=== PATIENT | female | born 1985 | race Caucasian/White ===

== ENCOUNTER → 2020-09-25 08:41 | Outpatient (BNVA) | payer MEDICAID, SELFPAY | PROVIDERS: PCP Pediatrics; Visit Provider Physician Assistant | DX: K58.9 Irritable bowel syndrome, unspecified (principal); F41.9 Anxiety disorder, unspecified | CPT/HCPCS: 99212 ==

== ENCOUNTER 2020-12-27 13:15 | Emergency (ER) | payer OTHER, MEDICAID, SELFPAY ==
[2020-12-27 13:22] VITALS: BP 140/60; BP 147/104; PULSE 100; PULSE 80; RESP 16; TEMP 36.9; O2SAT 100; O2SAT 98; BMI 22.4
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
[2020-12-27 14:06] LABS: MANUAL DIFF FLAG NO
[2020-12-27 14:08] LABS: Basophils Percent Auto 0.5 % (0-2); Eosinophils Absolute Auto 0.3 X10*3/uL (0.0-0.4); Eosinophils Percent Auto 4.1 % (0-4); Hematocrit 42.2 % (37-47); Hemoglobin 14.4 g/dl (12.0-16.0); Imm Gran Abs Auto 0.02 X10*3/uL (0.00-0.03); Imm Gran Pct Auto 0.3 % (0.0-0.4); Lymphocytes Absolute Auto 1.8 X10*3/uL (1.2-4.9); Lymphocytes Percent Auto 22.4 % (20-40); Mean Corpuscular HGB Conc 34.1 g/dl (31.0-35.0); Mean Corpuscular Hemoglobin 32.4 pg (27.0-33.0); Mean Platelet Volume 8.9 fL (9.4-12.3); Monocytes Absolute Auto 0.7 X10*3/uL (0.1-1.2); Neutrophils Percent Auto 63.7 % (45-73); Platelet Count 365 X10*3/uL (160-400); Red Blood Count 4.44 X10*6/uL (4.20-5.50); Red Cell Distribution Width 12.3 % (11.0-16.0); White Blood Count 7.9 X10*3/uL (4.8-10.8)
[2020-12-27 14:29] LABS: Ethanol 19 mg/dL
[2020-12-27 14:31] LABS: Alanine Aminotransferase 13 U/L (0-31); Albumin Level 4.2 g/dL (3.5-5.0); Alkaline Phosphatase 91 U/L (39-117); Anion Gap 14 (12-20); Aspartate Amino Transferase 19 U/L (5-31); Bilirubin Direct < 0.2 mg/dL (0.0-0.5); Bilirubin Total 0.2 mg/dL (0.0-1.0); Blood Urea Nitrogen 10 mg/dL (9-16); Calcium 9.2 mg/dL (8.4-10.2); Carbon Dioxide 23 mmol/L (22-29); Chloride 106 mmol/L (96-108); Creatinine Clr Calc Pharmacy 70.3; Estimated Glomerular Filt Rate > 60; Glucose Random 103 mg/dL (60-115); Potassium 3.8 mmol/L (3.3-5.1); Sodium 139 mmol/L (135-145); Total Protein 6.4 g/dL (6.5-8.0)
[2020-12-27 14:49] LABS: Glucose Urine UA NEG (NEG); Leukocyte Esterase Urine 1+ (NEG); Nitrite Urine NEG (NEG); Specific Gravity - Urine >= 1.030 (1.005-1.025); UACC Culture Trigger YES; Urine Blood NEG (NEG); Urine Ketones NEG (NEG); Urine Protein NEG (NEG-TRACE)
[2020-12-27 15:08] LABS: Appearance Urine CLOUDY; Color Urine YELLOW
[2020-12-27 15:09] LABS: Amphetamine Screen Urine Not Detected (Not Detect); Barbiturates, Urine Not Detected (Not Detect); Benzodiazepines Screen Urine Not Detected (Not Detect); Cannabinoid Screen Urine POSITIVE (Not Detect); Cocaine Screen Urine POSITIVE (Not Detect); Opiate Screen Urine Not Detected (Not Detect); Phencyclidine Screen Urine Not Detected (Not Detect); Squamous Epithelial Cell Urine 3+ /LPF; WBC Urine 0 /HPF (0-4)
[2020-12-27 15:10] LABS: Bacteria Urine 2+ /LPF; Mucus Urine 1+ /LPF
[2020-12-27 15:12] LABS: UPreg QC Valid YES; Urine Pregnancy NEGATIVE (NEGATIVE)
== END 2020-12-27 15:51 | disposition home or self-care (01) ==
PROVIDERS: Physician Assistant Medical; Emergency Provider Emergency Medicine; PCP Pediatrics
DX: Z04.1 Encounter for examination and observation following transport accident (principal); F19.10 Other psychoactive substance abuse, uncomplicated; R53.83 Other fatigue; F12.10 Cannabis abuse, uncomplicated
CPT/HCPCS: 36415; 80048; 80076; 80307; 81001; 81003; 81025; 82077; 85025; 87086; 99283; 99284

== ENCOUNTER 2021-10-15 11:26 | Outpatient (REF) | payer MEDICAID, SELFPAY ==
--- NOTE | ~2021-10-15 | XR_ITS ---
EXAMINATION: XR tibia fibula RT 2V, XR ankle RT 2V, XR knee RT 4V CLINICAL INFORMATION: Contusion. Fall 3 days ago. Pain in right ankle, knee, lower leg. COMPARISON: None. TECHNIQUE: AP, lateral, tunnel, and sunrise views of the right knee. AP and lateral views of the right tibia and fibula. AP, lateral, and oblique views of the right ankle. FINDINGS: There is a mildly displaced vertically oriented fracture through the lateral tibial plateau with approximately 2-3 mm offset. There is a moderate to large suprapatellar joint effusion. The medial tibial plateau is intact. The distal femur is intact. The fibula and mid to distal tibia are intact. No fracture or dislocation at the right ankle. Talar dome intact. No widening of the ankle mortise. XR/XR ankle RT 2V IMPRESSION: Mildly displaced vertically oriented fracture through the lateral tibial plateau with 2-3 mm offset at the articular surface. There is a moderate to large suprapatellar joint effusion. The distal femur, remainder of the tibia, and fibula are intact. No acute osseous abnormality of the right ankle. The findings and my recommendations not to bear weight and to be seen in the ER were discussed with the patient by telephone at 10/16/2021 4:48 PM. She understood and agreed with my plan.
--- NOTE | ~2021-10-15 | XR_ITS ---
EXAMINATION: XR tibia fibula RT 2V, XR ankle RT 2V, XR knee RT 4V CLINICAL INFORMATION: Contusion. Fall 3 days ago. Pain in right ankle, knee, lower leg. COMPARISON: None. TECHNIQUE: AP, lateral, tunnel, and sunrise views of the right knee. AP and lateral views of the right tibia and fibula. AP, lateral, and oblique views of the right ankle. FINDINGS: There is a mildly displaced vertically oriented fracture through the lateral tibial plateau with approximately 2-3 mm offset. There is a moderate to large suprapatellar joint effusion. The medial tibial plateau is intact. The distal femur is intact. The fibula and mid to distal tibia are intact. No fracture or dislocation at the right ankle. Talar dome intact. No widening of the ankle mortise. XR/XR knee RT 4V IMPRESSION: Mildly displaced vertically oriented fracture through the lateral tibial plateau with 2-3 mm offset at the articular surface. There is a moderate to large suprapatellar joint effusion. The distal femur, remainder of the tibia, and fibula are intact. No acute osseous abnormality of the right ankle. The findings and my recommendations not to bear weight and to be seen in the ER were discussed with the patient by telephone at 10/16/2021 4:48 PM. She understood and agreed with my plan.
--- NOTE | ~2021-10-15 | XR_ITS ---
EXAMINATION: XR tibia fibula RT 2V, XR ankle RT 2V, XR knee RT 4V CLINICAL INFORMATION: Contusion. Fall 3 days ago. Pain in right ankle, knee, lower leg. COMPARISON: None. TECHNIQUE: AP, lateral, tunnel, and sunrise views of the right knee. AP and lateral views of the right tibia and fibula. AP, lateral, and oblique views of the right ankle. FINDINGS: There is a mildly displaced vertically oriented fracture through the lateral tibial plateau with approximately 2-3 mm offset. There is a moderate to large suprapatellar joint effusion. The medial tibial plateau is intact. The distal femur is intact. The fibula and mid to distal tibia are intact. No fracture or dislocation at the right ankle. Talar dome intact. No widening of the ankle mortise. XR/XR tibia fibula RT 2V IMPRESSION: Mildly displaced vertically oriented fracture through the lateral tibial plateau with 2-3 mm offset at the articular surface. There is a moderate to large suprapatellar joint effusion. The distal femur, remainder of the tibia, and fibula are intact. No acute osseous abnormality of the right ankle. The findings and my recommendations not to bear weight and to be seen in the ER were discussed with the patient by telephone at 10/16/2021 4:48 PM. She understood and agreed with my plan.
== END 2021-10-15 11:27 | disposition home or self-care (01) ==
LOC: HO.XRAY 11:26
PROVIDERS: Absent Provider Pediatrics; PCP Pediatrics; Visit Provider General Practice
DX: S80.11XD Contusion of right lower leg, subsequent encounter (principal); S80.01XD Contusion of right knee, subsequent encounter
CPT/HCPCS: 73564; 73590; 73600

== ENCOUNTER 2021-10-16 17:35 | Emergency (ER) | payer MEDICAID, SELFPAY ==
--- NOTE | ~2021-10-16 | CT_ITS ---
EXAMINATION: CT KNEE WITHOUT CONTRAST, RIGHT CLINICAL INFORMATION: Tibial plateau fracture COMPARISON: Radiographs 10/15/21 TECHNIQUE: Multidetector CT. Examination of the right knee. Reformatting in the coronal and parasagittal planes. No contrast This CT examination was performed using dose optimization techniques as appropriate, variously including the following: *Automated exposure control *Adjustment of mA and/or kV according to patient size (this includes techniques or standardized protocols for targeted exams where dose is matched to indication/reason for exam; i.e. extremities or head) *Use of iterative reconstruction technique DLP: 207 mGy-cm FINDINGS: There is a comminuted lateral tibial plateau fracture. I estimate the depression to be approximately 2-3 mm. There is condensation with the impacted some chondral bone. The fracture extends to the region of the lateral tibial spine. There are vertical components with slight displacement of the cortex of the lateral metaphysis. The visualized fibula femur and patella appear intact. There is hemarthrosis. No gross disruption of the posterior cruciate. The upper two thirds of the anterior cruciate appear intact. The tibial insertion of the ACL is not optimally visualized. The extensor mechanism appears intact. Meniscal integrity is not able to be determined. CT/CT knee RT wo con IMPRESSION: Impacted mildly depressed comminuted intra-articular lateral tibial plateau fracture with hemarthrosis.
[2021-10-16 17:53] VITALS: BP 131/93; PULSE 81; RESP 16; TEMP 36.5; O2SAT 97; BMI 25.7
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
[2021-10-16] MEDS: oxyCODONE HCl Immed Release 5 MG TABLET PO (20:01)
[2021-10-16] MEDS: Ondansetron ODT 4 MG TAB.RAPDIS TRANSLINGU (20:02)
[2021-10-16] MEDS: Acetaminophen 325 MG TABLET 975 MG PO (20:02)
[2021-10-16 20:40] LABS: Amphetamine Screen Urine Not Detected (Not Detect); Barbiturates, Urine Not Detected (Not Detect); Benzodiazepines Screen Urine Not Detected (Not Detect); Cannabinoid Screen Urine POSITIVE (Not Detect); Cocaine Screen Urine POSITIVE (Not Detect); Fentanyl, urine Not Detected (Not Detect); Opiate Screen Urine Not Detected (Not Detect); Phencyclidine Screen Urine Not Detected (Not Detect)
== END 2021-10-16 20:28 | disposition home or self-care (01) ==
PROVIDERS: Physician Assistant; Emergency Provider Internal Medicine; PCP Pediatrics
DX: S82.141A Displaced bicondylar fracture of right tibia, initial encounter for closed fracture (principal); M25.061 Hemarthrosis, right knee; W01.0XXA Fall on same level from slipping, tripping and stumbling without subsequent striking against object, initial encounter; Y93.K1 Activity, walking an animal; Y92.410 Unspecified street and highway as the place of occurrence of the external cause; Y99.9 Unspecified external cause status
CPT/HCPCS: 73700; 80307; 99282; 99284

== ENCOUNTER → 2021-10-19 13:59 | Outpatient (BNVA) | payer MEDICAID, SELFPAY | PROVIDERS: PCP Pediatrics; Visit Provider Physician Assistant | DX: S82.141A Displaced bicondylar fracture of right tibia, initial encounter for closed fracture (principal) | CPT/HCPCS: 99202 ==

== ENCOUNTER → 2021-10-20 09:10 | Day surgery (SDC) | payer MEDICAID, SELFPAY ==
[2021-10-20 10:49] VITALS: BMI 24.8
[2021-10-20 11:18] LABS: UPreg QC Valid YES
[2021-10-20 11:19] LABS: Urine Pregnancy NEGATIVE (NEGATIVE)
[2021-10-20 11:28] LABS: COVID-19 Test Negative (Negative); IDNOW Serial# 16C4AD1C
[2021-10-20 11:31] LABS: Amphetamine Screen Urine Not Detected (Not Detect); Barbiturates, Urine Not Detected (Not Detect); Benzodiazepines Screen Urine Not Detected (Not Detect); Cannabinoid Screen Urine POSITIVE (Not Detect); Cocaine Screen Urine POSITIVE (Not Detect); Fentanyl, urine Not Detected (Not Detect); Opiate Screen Urine Not Detected (Not Detect); Phencyclidine Screen Urine Not Detected (Not Detect)
[2021-10-20 11:41] VITALS: BP 128/101; PULSE 77; RESP 18; TEMP 37.1; O2SAT 98
--- NOTE | 2021-10-20 14:15 | HO.ANESPROP2 ---
HPI - Anesthesia Eval Consult details Narrative: 36 F for ORIF of Tibial Fracture . The Urine Tox is positive for cocaine . The Patient admits of using cocaine up until late Tuesday/ Tuesday . The case was discussed with the surgeon . He will reschedule the patient for next week , given the non urgency of the procedure . PMFSH Active Problems Active Problems: All Active Problems (Updated 10/17/21 @ 00:03 by Tim Morales) Acid reflux (Acute) Anxiety (Acute) IBS (irritable bowel syndrome) (Acute) Past Medical History Medical History Acid reflux Anxiety IBS (irritable bowel syndrome) Family History Family History Father Colon cancer Liver cancer Surgical History Surgical History (Updated 10/19/21 @ 14:35 by MURIEL Comer) History of 2 sections History of carpal tunnel surgery Hx of cholecystectomy Social History Social History (Updated 10/19/21 @ 14:35 by MURIEL Comer) Household Members Other:: 2 kids Alcohol intake: current Patient Tobacco Use Status: Current everyday Tobacco user Tobacco use type: Cigarette Cigarette Packs Per Day: 3 Cigarettes Per Day: 60.0 Smoked in Last 30 Days: Yes Patient Given Instructions on How to Stop Smoking: Yes Date Education Initiated: 10/20/21 Second Hand Smoke Exposure: Yes Use of substances other than those prescribed or required for medical reasons: Yes Substance Use Type: Marijuana Are you DNR?: No Advance Directives: No Advance Directives Information Provided: Yes Current occupational status: unemployed 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 Meds Allergies Allergy/AdvReac Type Severity Reaction Status Date / Time No Known Allergies Allergy Verified 10/19/21 14:33 [No Known Allergies*] Home Medications Medication Instructions Recorded Confirmed Last Taken Type calcium carbonate 200 mg calcium 200 mg PO BID 09/25/20 09/25/20 Unknown History (500 mg) chewable tablet (Tums) sertraline 25 mg tablet (Zoloft) 25 mg PO DAILY 09/25/20 09/25/20 Unknown History trazodone 50 mg tablet 50 mg PO BEDTIME PRN 09/25/20 09/25/20 Unknown History Exam Exam Date and Time: October 20, 2021 1415 Height,Weight and Vital Signs: Height 4 ft 8 in Weight 50.349 kg Last Vital Signs Temp 98.7 F 10/20/21 11:41 Pulse 77 10/20/21 11:41 Resp 18 10/20/21 11:41 BP 128/101 H 10/20/21 11:41 Pulse Ox 98 10/20/21 11:41 Pertinent Lab Results Pertinent Lab Results: Laboratory Tests 10/20/21 10/20/21 10/20/21 10:35 10:35 10:44 Urine Test NEGATIVE Urine Opiates Screen Not Detected Urine Fentanyl Screen Not Detected Ur Barbiturates Screen Not Detected Ur Phencyclidine Scrn Not Detected Ur Amphetamines Screen Not Detected U Benzodiazepines Scrn Not Detected Urine Cocaine Screen POSITIVE H U Marijuana (THC) Screen POSITIVE H COVID-19 ([facility]EENA) Negative COVID-19 Clin Com See Note
--- NOTE | 2021-10-28 14:34 | MHC.SHP ---
Pre-Procedural Eval Section A Date of Service: 10/28/21 The patient is an INPATIENT: No Changes since office visit: Yes Patient answered all questions; No Cold of Flu in the past 2 weeks, No New Medical Problems and No Changes in Medication The History & Physical has been completed within 30 days and I have reviewed it.: Yes Section B Chief Complaint: fx tibia Allergies: Allergies Allergy/AdvReac Type Severity Reaction Status Date / Time No Known Allergies Allergy Verified 10/19/21 14:33 [No Known Allergies*] Plan I have reviewed the history and physical and performed a pertinent physical examination on my patient. No changes have occurred unless specified.
== END ==
PROVIDERS: Anesthesiology; Physician Assistant; PCP Pediatrics; Visit Provider Orthopaedic Surgery
DX: S82.121A Displaced fracture of lateral condyle of right tibia, initial encounter for closed fracture (principal); Z53.8 Procedure and treatment not carried out for other reasons; Z20.822 Contact with and (suspected) exposure to COVID-19; W01.0XXA Fall on same level from slipping, tripping and stumbling without subsequent striking against object, initial encounter; Y93.K1 Activity, walking an animal; Y92.9 Unspecified place or not applicable; Y99.8 Other external cause status
CPT/HCPCS: 80307; 81025; 87635; J0131; J0690

== ENCOUNTER 2021-10-28 17:28 | Inpatient (IN) | payer MEDICAID, SELFPAY ==
[2021-10-28] VITALS (12 sets, daily range): BP systolic 135–156; BP diastolic 79–99; PULSE 75–89; RESP 14–30; TEMP 36.4–37.3; O2SAT 96–100; BMI 25.1
--- NOTE | ~2021-10-28 | FL_ITS ---
EXAMINATION: XR FLUOROSCOPY WITH IMAGES CLINICAL INFORMATION: Right tibial plateau fracture COMPARISON: CT knee from 10/16/2021 TECHNIQUE: Fluoroscopy performed by Dr. Esquivel. Fluoroscopy time: 0.6 minutes DAP: 0.0524 [id number] Images: 6 images are saved in the electronic picture archive FL/FL guidance in OR FINDINGS AND IMPRESSION: Please refer to the operative report. There has been open reduction and internal fixation of the lateral tibial plateau fracture with injection of bone graft and application of a lateral plate and fixation screws. No significant incongruity at the fractured lateral plateau surface. Alignment is normal at the knee.
[2021-10-28 12:13] LABS: UPreg QC Valid YES; Urine Pregnancy NEGATIVE (NEGATIVE)
[2021-10-28 12:31] LABS: Amphetamine Screen Urine Not Detected (Not Detect); Barbiturates, Urine Not Detected (Not Detect); Benzodiazepines Screen Urine Not Detected (Not Detect); Cannabinoid Screen Urine POSITIVE (Not Detect); Cocaine Screen Urine Not Detected (Not Detect); Fentanyl, urine Not Detected (Not Detect); Opiate Screen Urine Not Detected (Not Detect); Phencyclidine Screen Urine Not Detected (Not Detect)
[2021-10-28 13:24] LABS: COVID-19 Test Negative (Negative); IDNOW Serial# 16C4AD1C
[2021-10-28] MEDS: Lactated Ringers 1,000 ML 100 ML IVCONT ×3 (13:28→21:06)
--- NOTE | 2021-10-28 15:19 | HO.ANESPROP2 ---
HPI - Anesthesia Eval Consult details Narrative: 36 F for Tibia ORIF , right smoker , Poly substance substance abuse , GERD PMFSH Active Problems Active Problems: All Active Problems (Updated 10/17/21 @ 00:03 by Tim Morales) Acid reflux (Acute) Anxiety (Acute) IBS (irritable bowel syndrome) (Acute) Past Medical History Medical History Acid reflux Anxiety IBS (irritable bowel syndrome) Family History Family History Father Colon cancer Liver cancer Family history of problems with anesthesia: No Surgical History Surgical History (Updated 10/19/21 @ 14:35 by MURIEL Comer) History of 2 sections History of carpal tunnel surgery Hx of cholecystectomy History of Problems with Anesthesia: No Social History Social History (Updated 10/19/21 @ 14:35 by MURIEL Comer) Household Members Other:: 2 kids Alcohol intake: current Patient Tobacco Use Status: Current everyday Tobacco user Tobacco use type: Cigarette Cigarette Packs Per Day: 3 Cigarettes Per Day: 2 Second Hand Smoke Exposure: Yes Use of substances other than those prescribed or required for medical reasons: Yes Substance Use Type: Marijuana Substance Use Frequency: Daily Are you DNR?: No Advance Directives: No Advance Directives Information Provided: Yes Current occupational status: unemployed 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 Meds Allergies Allergy/AdvReac Type Severity Reaction Status Date / Time No Known Allergies Allergy Verified 10/19/21 14:33 [No Known Allergies*] Active Medications: Current Medications Lactated Ringer's (Lr) 1,000 mls @ 100 mls/hr IVCONT .Q10H GEOVANNI Last Admin: 10/28/21 13:28 Dose: 100 mls/hr Documented by: Home Medications Medication Instructions Recorded Confirmed Last Taken Type calcium carbonate 200 mg calcium 200 mg PO BID 09/25/20 09/25/20 Unknown History (500 mg) chewable tablet (Tums) sertraline 25 mg tablet (Zoloft) 25 mg PO DAILY 09/25/20 09/25/20 Unknown History trazodone 50 mg tablet 50 mg PO BEDTIME PRN 09/25/20 09/25/20 Unknown History Exam Exam Date and Time: October 28, 2021 1519 Height,Weight and Vital Signs: Height 4 ft 8 in Weight 50.802 kg Last Vital Signs Temp 97.5 F 10/28/21 13:16 Pulse 85 10/28/21 13:16 Resp 16 10/28/21 13:16 BP 150/99 H 10/28/21 13:16 Pulse Ox 97 10/28/21 13:16 Pertinent Lab Results Pertinent Lab Results: Laboratory Tests 10/28/21 10/28/21 10/28/21 12:03 12:03 13:00 Urine Test NEGATIVE Urine Opiates Screen Not Detected Urine Fentanyl Screen Not Detected Ur Barbiturates Screen Not Detected Ur Phencyclidine Scrn Not Detected Ur Amphetamines Screen Not Detected U Benzodiazepines Scrn Not Detected Urine Cocaine Screen Not Detected U Marijuana (THC) Screen POSITIVE H COVID-19 ([facility]EENA) Negative COVID-19 Clin Com See Note Airway Mallampati Class: III TM Dist: >3cm Neck ROM: Full Loose/Missing/Broken Teeth: Yes (Chipped , poor dention ) Heart: S1,S2 Lungs: b/l breath sounds Assessment and Plan Assessment Anesthesia Assessment: Anesthesia Plan Discussed Final Anesthetic Review Family History of Problems with Anesthesia: No History of Problems with Anesthesia: No NPO: Yes ASA Class: III Final Preanesthetic Review: No Changes in Pt Med Stat, Meds/Allgs Chart Reviewed, Consent Obtained/Reviewed and Anes Risks/Benef Reviewed Patient Risk: High Procedure Risk: Intermediate Anesthetic Plan Anesthetic Plan: GA Disposition: Standard PACU
--- NOTE | 2021-10-28 17:38 | P.BOP_ITS ---
Brief Operative Note Date of Service: 10/28/21 Pre-op diagnosis: Right tibial plateau fracture Post-op diagnosis: same Procedure: ORIF right tibial plateau Implants: [place] 2 hikle lateral locking plate Surgeon: Daniel Esquivel MD Anesthesia: local Was an Global Expansion Sales Director used for this Procedure?: Yes Global Expansion Sales Director: Thuy Echeverria Estimated blood loss (mL): 100 Tourniquet time (min): 80 IV fluids (mL): 1,200 Pathology: none sent Condition: stable Disposition: PACU
[2021-10-28] MEDS: HYDROmorphone HCl 0.5 MG/0.5 ML SYRINGE IVPUSH ×3 (17:53→18:17)
--- NOTE | 2021-10-28 19:53 | PHA.MEDREC ---
Pharmacy Consult ? Medication Reconciliation Pharmacy has completed the medication reconciliation.
[2021-10-28] MEDS: 0.9 % Sodium Chloride Flush 3 ML SYRINGE IVFLUSH ×2 (20:56→23:57)
[2021-10-28] MEDS: oxyCODONE HCl ER 10 MG TAB.ER.12H PO (20:59)
[2021-10-28] MEDS: Celecoxib 200 MG CAPSULE PO (20:59)
[2021-10-28] MEDS: Docusate Sodium 100 MG CAPSULE PO (21:00)
[2021-10-28] MEDS: ceFAZolin Sodium/Dextrose,Iso 2 GM/50 ML PIGGYBACK IV (22:41)
[2021-10-28] MEDS: oxyCODONE HCl Immed Release 5 MG TABLET 10 MG PO (22:48)
[2021-10-29] VITALS (8 sets, daily range): BP systolic 119–183; BP diastolic 76–100; PULSE 70–87; RESP 16–18; TEMP 36.6–37.6; O2SAT 96–98
[2021-10-29] MEDS: HYDROmorphone HCl 1 MG/ML SYRINGE 0.25 MG IVPUSH ×4 (01:33→19:14)
[2021-10-29] MEDS: oxyCODONE HCl Immed Release 5 MG TABLET 10 MG PO ×3 (05:17→18:18)
[2021-10-29] MEDS: Lactated Ringers 1,000 ML 100 ML IVCONT (06:22)
[2021-10-29 06:26] LABS: MANUAL DIFF FLAG NO
[2021-10-29 06:28] LABS: Basophils Percent Auto 0.2 % (0-2); Hematocrit 38.4 % (37.0-47.0); Hemoglobin 12.8 g/dl (12.0-16.0); Imm Gran Abs Auto 0.17 X10*3/uL (0.00-0.03); Imm Gran Pct Auto 0.9 % (0.0-0.4); Lymphocytes Absolute Auto 1.2 X10*3/uL (1.2-4.9); Lymphocytes Percent Auto 6.2 % (20-40); Mean Corpuscular HGB Conc 33.3 g/dl (31.0-35.0); Mean Corpuscular Hemoglobin 33.2 pg (27.0-33.0); Mean Corpuscular Volume 99.5 fL (80.0-98.0); Mean Platelet Volume 9.6 fL (9.4-12.3); Monocytes Absolute Auto 1.1 X10*3/uL (0.1-1.2); Monocytes Percent Auto 6.1 % (2-11); Neutrophils Absolute Auto 16.1 x10*3/uL (2.0-8.3); Neutrophils Percent Auto 86.6 % (45-73); Platelet Count 463 X10*3/uL (160-400); Red Blood Count 3.86 X10*6/uL (4.20-5.50); Red Cell Distribution Width 12.9 % (11.0-16.0); White Blood Count 18.6 X10*3/uL (4.8-10.8)
[2021-10-29 06:54] LABS: Anion Gap 13 (12-20); Blood Urea Nitrogen 12 mg/dL (9-16); Carbon Dioxide 20 mmol/L (22-29); Chloride 106 mmol/L (96-108); Creatinine Clr Calc Pharmacy 80.2; Estimated Glomerular Filt Rate > 60; Glucose Fasting 134 mg/dL (60-99); Potassium 4.5 mmol/L (3.3-5.1); Sodium 134 mmol/L (135-145)
--- NOTE | 2021-10-29 07:04 | HO.POSTANES ---
Post Anesthesia Evaluation Post Anesthesia Evaluation Vital Signs: Vital Signs Temp Pulse Resp BP Pulse Ox 10/29/21 03:48 98 F 87 18 120/80 96 10/28/21 23:23 99.1 F 75 18 156/80 H 96 10/28/21 19:42 98.0 F 78 18 156/90 H 100 10/28/21 19:16 98.4 F 75 14 135/79 98 Anesthesia: Nerve Block and General Mental Status: Awake Pain Control: Satisfactory Nausea/Vomiting: None Hydration: Adequate Anesthesia-Related Issues: No Anes. Related Issues
[2021-10-29] MEDS: 0.9 % Sodium Chloride Flush 3 ML SYRINGE IVFLUSH ×2 (07:47→15:52)
[2021-10-29] MEDS: Docusate Sodium 100 MG CAPSULE PO ×2 (08:52→20:06)
[2021-10-29] MEDS: oxyCODONE HCl ER 10 MG TAB.ER.12H PO ×2 (08:52→20:06)
[2021-10-29] MEDS: Celecoxib 200 MG CAPSULE PO ×2 (08:52→20:06)
--- NOTE | 2021-10-29 08:57 | PM.PNORT ---
Subjective Subjective Date of Service: 10/29/21 Interval history: POD1 s/p right tibial plateau ORIF. Patient is resting in bed comfortably. Received a nerve block after surgery which greatly helped with pain. Pain is well managed currently. No overnight events. No additional complaints. Physical Exam Vital Signs: Vital Signs: Last Vital Signs Temp 98.4 F 10/29/21 07:25 Pulse 72 10/29/21 07:25 Resp 16 10/29/21 07:25 BP 119/76 10/29/21 07:25 Pulse Ox 98 10/29/21 07:25 BMI result Body Mass Index 25.1 Const: General: cooperative, healthy appearing and no acute distress Resp: Effort & Inspection: normal respiratory effort and able to speak in complete sentences Cardio: Rate: regular rate Peripheral pulses: Peripheral pulses 2+ throughout GI: Palpation (GI): Soft to palpation Skin: Lesions: no lesions Rashes: no rashes Extrem: Other: Right knee dressing clean, dry, and intact. NVI. Procedures Date of Service Date of Service: 10/29/21 Progress Note: A&P Assessment and plan (1) Closed fracture of tibial plateau: Status: Inactive Assessment and Plan: Continue pain mgmnt Begin Lovenox for dvt ppx begin PT for right tibial plateau ORIF Dispo planning-Pending PT eval, pain mgmnt Time Spent With Patient Time: Total time spent is greater than 50% in coordination of care (as documented) at patient's floor/unit and/or counseling patient: Quality Stroke Does the patient have a stroke diagnosis?: No VTE Prior VTE?: No VTE Risk Level:: Surgical - very high VTE Device Contraindication: N/A - Device Ordered VTE Drug Contraindication: N/A - Med Ordered
--- NOTE | 2021-10-29 10:26 | P.CONHOSP_ITS ---
History of Present Illness Data of Consult Service Date: 10/29/21 Requesting physician: Daniel Esquivel Primary Care Provider: Renetta Carr MD HPI Reason for consult: Leukocytosis/substance abuse 36-year-old female patient with past medical history significant for anxiety, acid reflux, and irritable bowel syndrome, admitted to Orthopedic Service for right tibial plateau fracture status post ORIF right tibial plateau on 10/28/21 By orthopedic surgeon, medical service was consulted for leukocytosis as well as concern for polysubstance abuse, at present time patient is complaining of right knee pain, she denies fever chills, she denies nausea vomiting abdominal pain or diarrhea she denies use of intravenous drugs, she snorts cocaine, last use was 2 weeks ago, she daily smokes marijuana, also smokes few cigarettes a day, and drinking alcohol occasionally few times a month, she denies any alcohol related issues with no prior history of withdrawal, no delirium tremens, or seizures, she denies back pain, has no withdrawal symptoms. Review of Systems Review of Systems: General no headache, no dizziness, no fever chills. CVS no chest pain, no palpitation. Respiratory no cough, no sob. Gastrointestinal no nausea, no vomiting, no abdominal pain no urinary frequency, no dysuria Skin denies rash Yes all other systems are reviewed and are negative PMFSH Medical History Acid reflux Anxiety IBS (irritable bowel syndrome) Family History Father Colon cancer Liver cancer Pertinent family history: No family history of diabetes or coronary artery disease Surgical History History of 2 sections History of carpal tunnel surgery Hx of cholecystectomy Social History Household Members: None Household Members Other:: 2 kids Housing: Apartment Do you presently have visiting nurse or other home services: No Alcohol intake: current Patient Tobacco Use Status: Current everyday Tobacco user Tobacco use type: Cigarette Cigarette Packs Per Day: 3 Cigarettes Per Day: 2 Smoked in Last 30 Days: Yes Patient Interested in Nicotine Replacement: No Patient Given Instructions on How to Stop Smoking: Yes Date Education Initiated: 10/28/21 Second Hand Smoke Exposure: No Use of substances other than those prescribed or required for medical reasons: No Substance Use Type: Marijuana Substance Use Frequency: Daily Last Used Substance: Hours (ago) Currently Displaying Signs/Symptoms of Drug Intoxication Withdrawal: No Any prior treatment program specific to substance use: No Have you been hit, kicked, punched, or otherwise hurt by someone within the past year? 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 Meds Allergies Allergy/AdvReac Type Severity Reaction Status Date / Time No Known Allergies Allergy Verified 10/19/21 14:33 [No Known Allergies*] Active Medications: Current Medications Acetaminophen (Acetaminophen 325 Mg Tablet) 650 mg PO Q6H PRN PRN Reason: Pain, Mild (Pain Scale 1-3) Celecoxib (Celecoxib 200 Mg Capsule) 200 mg PO BID [facility] Last Admin: 10/29/21 08:52 Dose: 200 mg Documented by: Docusate Sodium (Docusate Sodium 100 Mg Capsule) 100 mg PO BID [facility] Last Admin: 10/29/21 08:52 Dose: 100 mg Documented by: Enoxaparin Sodium (Enoxaparin Sodium 40 Mg/0.4 Ml Syringe) 40 mg SUBCUT Q24H [facility] Fentanyl (Fentanyl Citrate/Pf 100 Mcg/2 Ml Vial) 50 mcg IVPUSH Q5M PRN; Protocol PRN Reason: Pain, Severe (Pain Scale 7-10) Hydromorphone HCl (Hydromorphone Hcl 0.5 Mg/0.5 Ml Syringe) 0.5 mg IVPUSH Q5M PRN; Protocol PRN Reason: Pain, Severe (Pain Scale 7-10) Last Admin: 10/28/21 18:17 Dose: 0.5 mg Documented by: Hydromorphone HCl (Hydromorphone Hcl 1 Mg/Ml Syringe) 0.25 mg IVPUSH Q4H PRN; Protocol PRN Reason: Pain, Severe (Pain Scale 7-10) Last Admin: 10/29/21 07:46 Dose: 0.25 mg Documented by: Lactated Ringer's (Lr) 1,000 mls @ 100 mls/hr IVCONT .Q10H [facility] Last Admin: 10/29/21 06:22 Dose: 100 mls/hr Documented by: Ondansetron HCl (Ondansetron Hcl 4 Mg/2 Ml Vial) 4 mg IVPUSH Q8H PRN PRN Reason: Nausea and Vomiting Oxycodone HCl (Oxycodone Hcl Immed Release 5 Mg Tablet) 10 mg PO Q4H PRN PRN Reason: Pain, Moderate (Pain Scale 4-6 Last Admin: 10/29/21 05:17 Dose: 10 mg Documented by: Oxycodone HCl (Oxycodone Hcl Er 10 Mg Tab.Er.12h) 10 mg PO BID [facility] Last Admin: 10/29/21 08:52 Dose: 10 mg Documented by: Sodium Chloride (0.9 % Sodium Chloride Flush 3 Ml Syringe) 3 ml IVFLUSH QSHIFT [facility] Last Admin: 10/29/21 07:47 Dose: 3 ml Documented by: Home Medications Medication Instructions Recorded Confirmed Last Taken Type ibuprofen 200 mg tablet 200 mg PO Q6H PRN 10/28/21 10/28/21 10/28/21 History Physical Exam Vital Signs and Narrative: Vital Signs: Last Vital Signs Temp 98.4 F 10/29/21 07:25 Pulse 72 10/29/21 07:25 Resp 16 10/29/21 07:25 BP 119/76 10/29/21 07:25 Pulse Ox 98 10/29/21 07:25 BMI result Body Mass Index 25.1 Const: Other: General awake alert,in no acute distress. HEENT pupils equal round reactive to light and accommodation Neck no JVD. CVS regular rate rhythm, Respiratory lungs clear to auscultation, no respiratory distress, no wheeze, no rhonchi. Gastrointestinal abdomen soft, nontender, bowel sounds audible Extremities right extremity in brace, left extremity no edema. Neuro nonfocal ,speech clear. Skin no rash Psych appropriate affect Results Labs CBC and Chem 7: 10/29/21 05:46 10/29/21 05:46 Labs: Laboratory Results - last 24 hr 10/28/21 10/28/21 10/28/21 12:03 12:03 13:00 MCV MCH MCHC RDW Plt Count MPV Immature Gran % (Auto) Neut % (Auto) Lymph % (Auto) [place] % (Auto) Eos % (Auto) Baso % (Auto) Lymph # (Auto) [place] # (Auto) Eos # (Auto) Baso # (Auto) Abs Immat Gran (auto) Absolute Neuts (auto) Absolute Nucleated RBC Nucleated RBC % (auto) Anion Gap Estim Creat Clear Calc Estimated GFR Fasting Glucose Calcium Urine Test NEGATIVE Urine Opiates Screen Not Detected Urine Fentanyl Screen Not Detected Ur Barbiturates Screen Not Detected Ur Phencyclidine Scrn Not Detected Ur Amphetamines Screen Not Detected U Benzodiazepines Scrn Not Detected Urine Cocaine Screen Not Detected U Marijuana (THC) Screen POSITIVE H COVID-19 ([facility]EE[facility]) Negative COVID-19 Clin Com See Note 10/29/21 10/29/21 05:46 05:46 MCV 99.5 H MCH 33.2 H MCHC 33.3 RDW 12.9 Plt Count 463 H MPV 9.6 Immature Gran % (Auto) 0.9 H Neut % (Auto) 86.6 H Lymph % (Auto) 6.2 L [place] % (Auto) 6.1 Eos % (Auto) 0.0 Baso % (Auto) 0.2 Lymph # (Auto) 1.2 [place] # (Auto) 1.1 Eos # (Auto) 0.0 Baso # (Auto) 0.0 Abs Immat Gran (auto) 0.17 H Absolute Neuts (auto) 16.1 H Absolute Nucleated RBC 0.000 Nucleated RBC % (auto) 0.0 Anion Gap 13 Estim Creat Clear Calc 80.2 Estimated GFR > 60 Fasting Glucose 134 H Calcium 9.0 Urine Test Urine Opiates Screen Urine Fentanyl Screen Ur Barbiturates Screen Ur Phencyclidine Scrn Ur Amphetamines Screen U Benzodiazepines Scrn Urine Cocaine Screen U Marijuana (THC) Screen COVID-19 ([facility]EENA) COVID-19 Clin Com Assessment and Plan (1) Acid reflux: Status: Acute (2) Anxiety: Status: Acute (3) IBS (irritable bowel syndrome): Status: Acute (4) Polysubstance abuse: Status: Acute Plan 36 yr old female admitted to Orthopedic surgery for rt tibial plateau fx, DOI 10/12/21, Patient reports while walking her dog she had fall by tripping on the curb with rt leg putting all her weight on her left leg patient developed immediate pain and swelling and was unable to put pressure on left, patient admitted for elective right knee ORIF. Closed fracture of tibial plateau Status post ORIF pod #1 Good pain control continue Celebrex, oxycodone and OxyContin Will DC IV fluid/cont.bowel regimen/PT as tolerated Leukocytosis likely reactive, patient asymptomatic no URI symptoms no nausea,no vomiting, no abdominal pain, no diarrhea, no urinary symptoms will repeat CBC hold further workup for now. Irritable bowel disease stable Acid reflux no acute symptoms of heartburn or acidity not on PPI at home, follow clinical course. Poly substance abuse patient denies IV drug use smokes marijuana daily and snorts cocaine last use 2 weeks ago, and is motivated not to use cocaine again, declined Addiction Team consult DVT prophylaxis with Lovenox Will need continued inpatient hospitalization as per Orthopedic surgery
[2021-10-29] MEDS: Enoxaparin Sodium 40 MG/0.4 ML SYRINGE SUBCUT (15:52)
--- NOTE | 2021-10-29 16:38 | MHC.CM.PN ---
Addendum entered by Matilde Moreno 10/30/21 08:26: PT REPORTS BEING FULLY INDEPENDENT AT BASELINE, HAVING NO SERVICES AND USING NO DME PT DOES NOT HAVE A HCP BUT IS INTERESTED IN COMPLETING ONE TODAY PCP: ERIKA CAICEDO PT REPORTS SHE IS VACCINATED AGAINST COVID-19 CURRENT DC PLAN IS TO SISTERS HOME PER HER PREFERENCE SISTER TO TRANSPORT Original Note: CM MET WITH PT AND SISTER PT LIVES WITH HER CHILDREN () HOWEVER AT DC, SHE WILL BE GOING TO HER SISTERS HOME PT ALSO WOULD LIKE TO COMPLETE A HCP NAMING HER SISTER, STEFANO, HER AGENT CM WILL RETURN TUESDAY TO COMPLETE
[2021-10-29] MEDS: Morphine Sulfate 4 MG/ML CARTRIDGE IVPUSH (22:33)
[2021-10-29] MEDS: Zolpidem Tartrate 5 MG TABLET PO (22:33)
[2021-10-30] MEDS: 0.9 % Sodium Chloride Flush 3 ML SYRINGE IVFLUSH ×2 (00:40→08:27)
[2021-10-30] MEDS: HYDROmorphone HCl 1 MG/ML SYRINGE 0.25 MG IVPUSH (03:27)
[2021-10-30 03:30] VITALS: BP 162/89; PULSE 77; RESP 18; TEMP 36.3; O2SAT 96
[2021-10-30] MEDS: oxyCODONE HCl Immed Release 5 MG TABLET 10 MG PO ×2 (05:53→11:19)
[2021-10-30 06:24] LABS: Basophils Absolute Auto 0.1 X10*3/uL (0.0-0.2); Basophils Percent Auto 0.6 % (0-2); Eosinophils Absolute Auto 0.2 X10*3/uL (0.0-0.4); Eosinophils Percent Auto 1.2 % (0-4); Hematocrit 37.2 % (37.0-47.0); Hemoglobin 12.4 g/dl (12.0-16.0); Imm Gran Abs Auto 0.07 X10*3/uL (0.00-0.03); Imm Gran Pct Auto 0.5 % (0.0-0.4); Lymphocytes Absolute Auto 2.3 X10*3/uL (1.2-4.9); Lymphocytes Percent Auto 16.7 % (20-40); MANUAL DIFF FLAG SCAN; Mean Corpuscular HGB Conc 33.3 g/dl (31.0-35.0); Mean Corpuscular Hemoglobin 32.3 pg (27.0-33.0); Mean Corpuscular Volume 96.9 fL (80.0-98.0); Mean Platelet Volume 9.2 fL (9.4-12.3); Monocytes Absolute Auto 1.6 X10*3/uL (0.1-1.2); Monocytes Percent Auto 11.8 % (2-11); Neutrophils Absolute Auto 9.4 x10*3/uL (2.0-8.3); Neutrophils Percent Auto 69.2 % (45-73); Platelet Count 499 X10*3/uL (160-400); Red Blood Count 3.84 X10*6/uL (4.20-5.50); Red Cell Distribution Width 13.1 % (11.0-16.0); SCAN SMEAR FLAG 1; White Blood Count 13.5 X10*3/uL (4.8-10.8)
[2021-10-30 06:49] LABS: SLIDE REVIEW VERIFIED
[2021-10-30 06:50] LABS: Anion Gap 14 (12-20); Blood Urea Nitrogen 12 mg/dL (9-16); Calcium 9.3 mg/dL (8.4-10.2); Carbon Dioxide 22 mmol/L (22-29); Chloride 104 mmol/L (96-108); Creatinine Clr Calc Pharmacy 85.5; Estimated Glomerular Filt Rate > 60; Glucose Fasting 102 mg/dL (60-99); Potassium 4.5 mmol/L (3.3-5.1); Sodium 135 mmol/L (135-145)
[2021-10-30 07:37] VITALS: BP 173/107; PULSE 88; RESP 18; TEMP 36.9; O2SAT 99
--- NOTE | 2021-10-30 07:58 | PM.PNORT ---
Subjective Subjective Date of Service: 10/30/21 Interval history: POD2 s/p right tibial plateau ORIF. Patient is resting in bed comfortably. Received a nerve block after surgery which greatly helped with pain initially. She reports that last night she had a great deal of pain that was not well managed. Pain is well managed currently. No overnight events. No additional complaints. Physical Exam Vital Signs: Vital Signs: Last Vital Signs Temp 98.4 F 10/30/21 07:37 Pulse 88 10/30/21 07:37 Resp 18 10/30/21 07:37 BP 173/107 H 10/30/21 07:37 Pulse Ox 99 10/30/21 07:37 BMI result Body Mass Index 25.1 Const: General: cooperative, healthy appearing and no acute distress Resp: Effort & Inspection: normal respiratory effort and able to speak in complete sentences Cardio: Rate: regular rate Peripheral pulses: Peripheral pulses 2+ throughout GI: Palpation (GI): Soft to palpation Skin: Lesions: no lesions Rashes: no rashes Extrem: Other: Right knee dressing clean, dry, and intact. NVI. Procedures Date of Service Date of Service: 10/30/21 Progress Note: A&P Assessment and plan (1) Closed fracture of tibial plateau: Status: Inactive Assessment and Plan: Continue pain mgmnt Continue Lovenox for dvt ppx Continue PT for right tibial plateau ORIF Dispo planning-PT, pain mgmnt Time Spent With Patient Time: Total time spent is greater than 50% in coordination of care (as documented) at patient's floor/unit and/or counseling patient: Quality Stroke Does the patient have a stroke diagnosis?: No VTE Prior VTE?: No VTE Risk Level:: Surgical - very high VTE Device Contraindication: N/A - Device Ordered VTE Drug Contraindication: N/A - Med Ordered
[2021-10-30] MEDS: Docusate Sodium 100 MG CAPSULE PO (08:26)
[2021-10-30] MEDS: Acetaminophen 325 MG TABLET 650 MG PO ×2 (08:26→13:44)
[2021-10-30] MEDS: Celecoxib 200 MG CAPSULE PO (08:26)
[2021-10-30] MEDS: oxyCODONE HCl ER 10 MG TAB.ER.12H PO (08:27)
[2021-10-30 11:23] VITALS: BP 173/107; PULSE 88; O2SAT 99
--- NOTE | 2021-10-30 11:54 | P.PNIM_ITS ---
Subjective Subjective Date of Service: 10/30/21 Interval History: Complaining of poor sleep last night due to significant right knee pain, currently pain is better after use of IV pain medications, wants to rest refusing breakfast noted to have significantly elevated blood pressures overn ight BP remains elevated patient admits to having high blood pressures in the past, not on home medication, denies headache lightheadedness dizziness, no chest pain, no palpitation, , no fevers, no chills fairly Review of Systems Review of Systems: Yes all other systems are reviewed and are negative Physical Exam Vital Signs: Vital Signs: Last Vital Signs Temp 98.4 F 10/30/21 07:37 Pulse 88 10/30/21 11:23 Resp 18 10/30/21 07:37 BP 173/107 H 10/30/21 11:23 Pulse Ox 99 10/30/21 11:23 BMI result Body Mass Index 25.1 Const: Other: General awake aler t,in no acute dist ress. HEENT pupils equal round react tavon to light and a ccommodation? Neck ? no JVD. CVS? reg ular rate rhythm, Respiratory lungs clear to auscultat ion, no respirator y distress, no whe maggy, no rhonchi. G astrointestinal ab domen soft, nonten emerald, bowel sounds audible Extremitie s right extremity in brace, left ext remity no edema. N euro nonfocal ,spe ech clear. Skin no rash Psych approp riate affect Objective Data Active Medications Acetaminophen (Acetaminophen 325 Mg Tablet) 650 mg PO Q6H PRN PRN Reason: Pain, Mild (Pain Scale 1-3) Last Admin: 10/30/21 08:26 Dose: 650 mg Documented by: SARITHA Amlodipine Besylate (Amlodipine Besylate 5 Mg Tablet) 5 mg PO DAILY [facility]; Protocol Celecoxib (Celecoxib 200 Mg Capsule) 200 mg PO BID [facility] Last Admin: 10/30/21 08:26 Dose: 200 mg Documented by: SARITHA Docusate Sodium (Docusate Sodium 100 Mg Capsule) 100 mg PO BID [facility] Last Admin: 10/30/21 08:26 Dose: 100 mg Documented by: SARITHA Enoxaparin Sodium (Enoxaparin Sodium 40 Mg/0.4 Ml Syringe) 40 mg SUBCUT Q24H [facility] Last Admin: 10/29/21 15:52 Dose: 40 mg Documented by: DOLLY Fentanyl (Fentanyl Citrate/Pf 100 Mcg/2 Ml Vial) 50 mcg IVPUSH Q5M PRN; Prot ocol PRN Reason: Pain, Severe (Pain Scale 7-10) Ondansetron HCl (Ondansetron Hcl 4 Mg/2 Ml Vial) 4 mg IVPUSH Q8H PRN PRN Reason: Nausea and Vomiting Oxycodone HCl (Oxycodone Hcl Immed Release 5 Mg Tablet) 10 mg PO Q4H PRN PRN Reason: Pain, Moderate (Pain Scale 4-6 Last Admin: 10/30/21 11:19 Dose: 10 mg Documented by: SARITHA Oxycodone HCl (Oxycodone Hcl Er 10 Mg Tab.Er.12h) 10 mg PO BID [facility] Last Admin: 10/30/21 08:27 Dose: 10 mg Documented by: SARITHA Sodium Chloride (0.9 % Sodium Chloride Flush 3 Ml Syringe) [facility] Last Admin: 10/30/21 08:27 Dose: 3 ml Documented by: SARITHA Labs CBC & Chem 7: 10/30/21 05:48 10/30/21 05:48 Labs: Laboratory Results - last 24 hr 10/30/21 10/30/21 05:48 05:48 MCV 96.9 MCH 32.3 MCHC 33.3 RDW 13.1 Plt Count 499 H MPV 9.2 L Immature Gran % (Auto) 0.5 H Neut % (Auto) 69.2 Lymph % (Auto) 16.7 L [place] % (Auto) 11.8 H Eos % (Auto) 1.2 Baso % (Auto) 0.6 Lymph # (Auto) 2.3 [place] # (Auto) 1.6 H Eos # (Auto) 0.2 Baso # (Auto) 0.1 Abs Immat Gran (auto) 0.07 H Absolute Neuts (auto) 9.4 H Absolute Nucleated RBC 0.000 Nucleated RBC % (auto) 0.0 Smear Tech's Comments VERIFIED Anion Gap 14 Estim Creat Clear Calc 85.5 Estimated GFR > 60 Fasting Glucose 102 H Calcium 9.3 Assessment and Plan (1) Polysubstance abuse: Status: Acute (2) Acid reflux: Status: Acute (3) Anxiety: Status: Acute (4) Hypertension: Status: Acute Plan 36 yr old female admitted to Orthopedic surgery for rt tibial plateau fx, DOI 10/12/21, Patient reports while walking her dog she had fall by tripping on the curb with rt leg putting all her weight on her left leg patient developed immediate pain and swelling and was unable to put pressure on left, patient admitted for elective right knee ORIF. Closed fracture of tibial plateau Status post ORIF pod #2 Right knee pain severe pain overnight, on Celebrex, oxycodone and OxyContin cont.bowel regimen/PT as tolerated Elevated blood pressure not on home medications, noted to have high blood pressure in the past Will place on Norvasc 5 mg daily, due to young age will need close outpatient follow-up and workup for secondary causes of hypertension, strongly recommend to abstain from use of cocaine, renal function and electrolytes stable, follow BP Leukocytosis likely reactive, WBC trending down from 18.6-13.5 today patient asymptomatic no URI symptoms no nausea,no vomiting, no abdominal pain, no diarrhea, no urinary symptoms , hold antibiotics Irritable bowel disease stable Acid reflux no acute symptoms of heartburn or acidity not on PPI at home, follow clinical course. Poly substance abuse patient denies IV drug use smokes marijuana daily and snorts cocaine last use 2 weeks ago, and is motivated not to use cocaine again, declined Addiction Team consult DVT prophylaxis with Lovenox Will need continued inpatient hospitalization as per Orthopedic surgery Quality Stroke Does the patient have a stroke diagnosis?: No VTE Prior VTE?: No VTE Risk Level:: Surgical - very high VTE Device Contraindication: N/A - Device Ordered VTE Drug Contraindication: N/A - Med Ordered
[2021-10-30] MEDS: amLODIPine Besylate 5 MG TABLET PO (13:38)
--- NOTE | 2021-10-30 14:00 | P.DS_ITS ---
DS: Providers Provider Date of Service: 10/30/21 Date of admission: 10/28/21 17:28 Primary care physician: Renetta Carr MD Consults: 10/28/21 20:15 Consult to Hospitalist Routine Consulting Provider: Hospitalist Reason For Exam: routine medical management DS: Diagnosis Discharge Diagnosis (1) Polysubstance abuse: Status: Acute (2) Acid reflux: Status: Acute (3) Anxiety: Status: Acute (4) Hypertension: Status: Acute DS: Summary Hospital Course Hospital Course: The patient underwent a successful right tibial plateau ORIF, they were transferred to PACU and then to the floor to recover. During their stay, their vitals were stable, afebrile at 97.8. Labs were unremarkable, H/H 9.2/30.4. POD 1 they were started on Lovenox for DVT ppx, they also received Physical Therapy services twice a day. Prior to discharge, their dressing was changed, incision clean dry and intact, Aquacel clean, dry, and intact. The plan was to be discharged home with VNA services. Time Spent with Patient Time attestation: Total time spent providing and/or coordinating discharge services: Discharge coordination time: Less than 30 minutes Quality: Safe Use of Opioids Does Pt have an Active Cancer Diagnosis on the Problem List?: No Quality: Stroke Does the patient have a stroke diagnosis?: No Physical Exam Vital Signs: Vital Signs: Last Vital Signs Temp 98.4 F 10/30/21 07:37 Pulse 88 10/30/21 11:23 Resp 18 10/30/21 07:37 BP 173/107 H 10/30/21 11:23 Pulse Ox 99 10/30/21 11:23 BMI result Body Mass Index 25.1 Const: General: cooperative, healthy appearing and no acute distress Resp: Effort & Inspection: normal respiratory effort and able to speak in complete sentences Cardio: Rate: regular rate Peripheral pulses: Peripheral pulses 2+ throughout GI: Palpation (GI): Soft to palpation Skin: Lesions: no lesions Rashes: no rashes Extrem: Other: Right knee dressing clean, dry, and intact. NVI. DS: Data Data Completed and Pending Labs on day of discharge: Laboratory Results - last 24 hr 10/30/21 10/30/21 05:48 05:48 WBC 13.5 H RBC 3.84 L Hgb 12.4 Hct 37.2 MCV 96.9 MCH 32.3 MCHC 33.3 RDW 13.1 Plt Count 499 H MPV 9.2 L Immature Gran % (Auto) 0.5 H Neut % (Auto) 69.2 Lymph % (Auto) 16.7 L Haywood % (Auto) 11.8 H Eos % (Auto) 1.2 Baso % (Auto) 0.6 Lymph # (Auto) 2.3 Haywood # (Auto) 1.6 H Eos # (Auto) 0.2 Baso # (Auto) 0.1 Abs Immat Gran (auto) 0.07 H Absolute Neuts (auto) 9.4 H Absolute Nucleated RBC 0.000 Nucleated RBC % (auto) 0.0 Smear Tech's Comments VERIFIED Sodium 135 Potassium 4.5 Chloride 104 Carbon Dioxide 22 Anion Gap 14 BUN 12 Creatinine 0.61 Estim Creat Clear Calc 85.5 Estimated GFR > 60 Fasting Glucose 102 H Calcium 9.3 Discharge Plan Discharge Patient Disposition: Home Health Service Discharge Diagnosis: s/p rt tibial plateau fx Referrals: Renetta Carr MD [Primary Care Provider] - 1 Week Thuy Echeverria PA-C [Physician Automotive Brake Specialist] - 11/09/21 8:45 am Discharge Medications: New celecoxib 200 mg Capsule 200 mg PO BID 30 Days Qty: 60 0RF acetaminophen 325 mg Tablet 650 mg PO Q6H PRN (Reason: Pain, Mild (Pain Scale 1-3)) 30 Days Qty: 240 0RF docusate sodium 100 mg Capsule 100 mg PO BID 30 Days Qty: 60 0RF enoxaparin 40 mg/0.4 mL Syringe 40 mg subcut Q24H 42 Days Qty: 16.8 0RF oxycodone-acetaminophen [Percocet] 5-325 mg tablet 1 tab PO Q4-6H PRN (Reason: pain (scale score 4-6)) 7 Days Qty: 42 0RF oxycodone [OxyContin] 10 mg tablet,oral only,ext.rel.12 hr 10 mg PO Q12H 3 Days Qty: 6 0RF Continued ondansetron 4 mg tablet,disintegrating 4 mg PO Q8H PRN (Reason: nausea and vomiting) Qty: 14 0RF Discontinued ibuprofen 200 mg Tablet 200 mg PO Q6H PRN (Reason: Pain) 0RF Discharge Orders: Discharge Order (Routine); Ordered 10/30/21 Ordered By: Thuy Echeverria Diet: regular diet Activity on Discharge: Use cane or walker Stand Alone Forms: Patient Portal Discharge page Care Plan Goals: Restore fxn to right knee Health Concerns: None Plan of Treatment: * NWB x6-8 weeks * NWB gentle ROM * Call orthopedics if need a dressing change * No tub bath or shower-Keep dressing clean, dry and intact * Follow up with orthopedics in 2 weeks Assessment: stable for discharge Discharge Date/Time: 10/30/21 14:52
--- NOTE | 2021-10-30 15:19 | MHC.CM.PN ---
PT MEDICALLY CLEARED FOR D/C, CM CONTACTED PTS PHARMACY D/T PT RCEIVING MESSAGES REGARDING ONE OF HER SCRIPTS, OXYCONTIN NOT COVERED BY INSURANCE AND UNABLE TO PAY [place] PER PHARMACY, PT NOTIFIED AND AWARE, PT ALSO AWARE SCRIPTS WENT TO [facility] AND [facility] LOCATION, CM WILL PLACE REFERRAL TO [facility], PT HAD FAMILY FOR TRANSPOIRT
--- NOTE | 2021-10-30 15:36 | P.F2F_ITS ---
Service Date Service Date: 10/30/21 Encounter Date of encounter: 10/30/21 Reasons for Services Signs and symptoms assessed: Pt. is considered homebound due to recent surgery. Unable to drive, poor balance, poor gait mechanics. Reason for physical therapy: home safety and mobility, therapeutic exercises, restore joint function, gait/transfer training, assess need for DME and ADL training Reason for occupational therapy: home safety and mobility, therapeutic exercises, restore joint function, gait/transfer training, assess need for DME and ADL training Homebound: Leaving the home is medically contraindicated at this time without the asist of a device and/or another person due th the listed conditions above and below. Reason homebound: unsteady gait / fall risk, leg weakness, pain with ambulation, pain with transfers, poor balance / fall risk, non-weight bearing and unable to drive Homebound supporting statement: Pt. is considered homebound due to recent surgery. Unable to drive, poor balance, poor gait mechanics. Certification: Based on the above findings, I certify that this patient is confined to the home and needs intermittent long term care, physical therapy and/or speech therapy, or continues to need occupational therapy. The patient is under my care, and I have initiated the establishment of the plan of care. The patient will be followed by a physician who will periodically review the plan of care.
--- NOTE | 2021-11-06 15:55 | W.MHC.F2F ---
Service Date Service Date: 11/06/21 Encounter Date of encounter: 10/30/21 Reasons for Services Signs and symptoms assessed: Pt. is considered homebound due to recent surgery. Unable to drive, poor balance, poor gait mechanics s/p tibial plateau ORIF. Reason for physical therapy: home safety and mobility, therapeutic exercises, restore joint function, gait/transfer training, assess need for DME and ADL training Homebound: Leaving the home is medically contraindicated at this time without the asist of a device and/or another person due th the listed conditions above and below. Reason homebound: unsteady gait / fall risk, leg weakness, pain with ambulation, pain with transfers, poor balance / fall risk, non-weight bearing and unable to drive Homebound supporting statement: Pt. is considered homebound due to recent surgery. Unable to drive, poor balance, poor gait mechanics. Certification: Based on the above findings, I certify that this patient is confined to the home and needs intermittent nursing home care, physical therapy and/or speech therapy, or continues to need occupational therapy. The patient is under my care, and I have initiated the establishment of the plan of care. The patient will be followed by a physician who will periodically review the plan of care.
--- NOTE | 2021-11-23 16:52 | P.OP_ITS ---
Operative Note Operative Note Date of Service: 10/28/21 Narrative: Date of Service: 10/28/21 Pre-op diagnosis: Right tibial plateau fracture Post-op diagnosis: same Procedure: ORIF right tibial plateau Implants: Loren 2 hikle lateral locking plate Surgeon: Daniel Esquivel MD Anesthesia: local Was an Geotechnicial Properties Technician used for this Procedure?: Yes Geotechnicial Properties Technician: Thuy Echeverria Estimated blood loss (mL): 100 Tourniquet time (min): 80 IV fluids (mL): 1,200 Pathology: none sent Condition: stable Disposition: PACUProcedure in detail: Patient was brought to the operating room and placed supine on the surgical table. She was prepped and draped in standard sterile fashion and a time out was called to identify proper site, proper procedure and IV antibiotics per weight were administered. ? A began by making an S shaped incision over the lateral joint line and.? The iliotibial band and Gerdy's tubercle were identified.? A fascial incision was made in line with the skin incision and a periosteal elevator was used to elevate the IT band off of Gerdy's tubercle.? I then split the anterior compartment musculature down to the anterolateral aspect of the tibial shaft.? Proximally I incised the coronal ligaments and elevated the lateral meniscus proximally using FiberWire retraction sutures.? I examined the joint.? There was a split depression of the anterolateral tibial plateau.? Loose tissue was debrided from this and cortical with window was made in the tibial shaft.? A tamp was placed through the cortical window and the joint line was elevated under both direct visualization and radiographic visualization.? Once I was satisfied that the joint line had been elevated a small brayan incision was made over the medial tibial plateau and a C-clamp was placed to reduce the split fracture.? Once I was satisfied? with the joint alignment I placed 5 mm of HydroSet through the cortical window tamping up the articular surface.? Once the Hydrocet was dry the cortical piece was replaced and I turned my attention to application of the tibial plateau hardware.? A 2 distal hole lateral locking plate was applied over the lateral tibial plateau.? Direct visualization was used to align the plate as well as radiographic visualization.? Once I was satisfied with the position of the plate 3 locking screws were placed just distal to the articular surface from lateral to medial.? I then placed 3 nonlocking screws through the distal plate.? Biplanar radiographs were used to confirm plate position and fracture reduction.? I was satisfied with both of these.? All instrumentation was then removed. ? I then repaired the coronal ligaments and the lateral meniscus.? The iliotibial band was closed with 0 Vicryl and subcuticular layer was closed with 2-0 Vicryl.? Khurram were used for the skin.? I injected 30 mL of 0.25% Marcaine.? Patient was placed in sterile dressing and a hinged knee brace.? She was extubated brought to recovery room stable condition.? There were no known complications.
== END 2021-10-30 14:52 | disposition home health service (06) | DRG 313 ==
LOC: HO.S3 17:29
PROVIDERS: Anesthesiology; Nurse Practitioner; Physician Assistant; Admitting Provider Orthopaedic Surgery; PCP Pediatrics; Visit Provider Orthopaedic Surgery
PROC: 0QSG04Z Reposition Right Tibia with Internal Fixation Device, Open Approach (ICD-10-PCS; principal; 2021-10-28 14:20)
DX: S82.141A Displaced bicondylar fracture of right tibia, initial encounter for closed fracture (principal); D72.829 Elevated white blood cell count, unspecified; F17.210 Nicotine dependence, cigarettes, uncomplicated; W01.0XXA Fall on same level from slipping, tripping and stumbling without subsequent striking against object, initial encounter; Y93.K1 Activity, walking an animal; Y92.480 Sidewalk as the place of occurrence of the external cause; K58.9 Irritable bowel syndrome, unspecified; F19.10 Other psychoactive substance abuse, uncomplicated; K21.9 Gastro-esophageal reflux disease without esophagitis; F41.9 Anxiety disorder, unspecified; Z71.6 Tobacco abuse counseling; Z20.822 Contact with and (suspected) exposure to COVID-19; Z79.899 Other long term (current) drug therapy
CPT/HCPCS: 36415; 80048; 80307; 81025; 85025; 87635; 97116; 97162; 97166; 97530; C1713; J0131; J0690; J1100; J1170; J1650; J2250; J2270; J2405; J2550; J2795; J3010

== ENCOUNTER 2021-11-09 08:35 | Outpatient (REF) | payer MEDICAID, SELFPAY ==
--- NOTE | ~2021-11-09 | XR_ITS ---
EXAMINATION: XR KNEE, RIGHT CLINICAL INFORMATION: Pain. COMPARISON: Right knee 10/15/2021. TECHNIQUE: 2 views of the right knee. FINDINGS: There is a right lateral tibial plate and screws stabilizing a lateral tibial plateau fracture alignment. Immediate postoperative changes are seen with surgical uzma along the lateral knee. No abnormal joint effusion seen. XR/XR knee RT 2V IMPRESSION: Stabilized right lateral tibial plateau with a lateral proximal tibial plate and screws and immediate postop changes. There is no change compared to right knee fluoroscopy images from 10/28/2021.
== END 2021-11-09 08:36 | disposition home or self-care (01) ==
LOC: HO.HOSX 08:35
PROVIDERS: Visit Provider Physician Assistant
DX: M25.561 Pain in right knee (principal)
CPT/HCPCS: 73560

== ENCOUNTER 2021-11-13 05:09 | Emergency (ER) | payer MEDICAID, SELFPAY ==
--- NOTE | 2021-11-13 | ECG_ITS ---
Test Reason : ABD PAIN Blood Pressure : / mmHG Vent. Rate : 093 BPM Atrial Rate : 093 BPM P-R Int : 136 ms QRS Dur : 080 ms QT Int : 350 ms P-R-T Axes : 057 026 031 degrees QTc Int : 435 ms Normal sinus rhythm Normal ECG No previous ECGs available Referred By: Ramana Ocampo Electronically Signed By:Tawanda La
[2021-11-13 05:17] VITALS: BP 149/99; PULSE 101; RESP 21; TEMP 36.4; O2SAT 100; BMI 25.7
--- NOTE | 2021-11-13 05:18 | ED.ABDPAIN ---
HPI - Abdominal Pain General Chief Complaint: Nausea/Vomiting/Diarrhea Stated Complaint: abd pain/vomiting Time Seen by Provider: 11/13/21 05:18 Source: patient Mode of arrival: EMS Limitations: no limitations History of Present Illness HPI narrative: Patient today 36 years old with significant history of anxiety, acid reflux, IBS, cocaine abuse was discharged home on 10/30 after when she was admitted for upper abdominal pain for gastritis comes here as since yesterday afternoon after eating food same episodes pain in epigastric area with vomiting multiple times no diarrhea no fever or chills Related Data Previous Rx's Medication Instructions Recorded ondansetron 4 mg disintegrating 4 mg PO Q8H PRN nausea and 10/16/21 tablet vomiting #14 tabs acetaminophen 325 mg tablet 650 mg PO Q6H PRN Pain, Mild (Pain 10/30/21 Scale 1-3) 30 days #240 tabs celecoxib 200 mg capsule 200 mg PO BID 30 days #60 caps 10/30/21 docusate sodium 100 mg capsule 100 mg PO BID 30 days #60 caps 10/30/21 enoxaparin 40 mg/0.4 mL 40 mg (0.4 mL) subcut Q24H 42 days 10/30/21 subcutaneous syringe #16.8 mL oxycodone 10 mg tablet,crush 10 mg PO Q12H 3 days #6 tabs 10/30/21 resistant,extended release 12 hr (OxyContin) oxycodone-acetaminophen 5 mg-325 1 tab PO Q4-6H PRN pain (scale 10/30/21 mg tablet (Percocet) score 4-6) 7 days #42 tabs oxycodone-acetaminophen 10 mg-325 1 tab PO Q6H PRN pain 7 days #28 11/05/21 mg tablet tabs omeprazole 40 mg capsule,delayed 40 mg PO DAILY #20 caps 11/13/21 release Allergies Allergy/AdvReac Type Severity Reaction Status Date / Time No Known Allergies Allergy Verified 10/19/21 14:33 [No Known Allergies*] Review of Systems Review of Systems Yes all other systems are reviewed and are negative PMFSH Past Medical History Medical History Acid reflux Anxiety Hypertension IBS (irritable bowel syndrome) Polysubstance abuse Surgical History History of 2 sections History of carpal tunnel surgery Hx of cholecystectomy Family History Family History Father Colon cancer Liver cancer Social History Social History Household Members: None Household Members Other:: 2 kids Housing: Apartment Do you presently have visiting nurse or other home services: No Alcohol intake: current Patient Tobacco Use Status: Current everyday Tobacco user Tobacco use type: Cigarette Cigarette Packs Per Day: 3 Cigarettes Per Day: 2 Smoked in Last 30 Days: No Second Hand Smoke Exposure: No Use of substances other than those prescribed or required for medical reasons: Yes Substance Use Type: Marijuana Advance Directives: No Current occupational status: unemployed 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 Oriented X3. Very anxious diffuse abdominal pain mostly epigastric area Eyes: PERRLA, No Nystagmus ENT: Pharynx normal. Oral Mucosa moist Neck: Normal inspection. Neck supple. CVS: Normal heart rate and rhythm. Pulses normal. Respiratory: No respiratory distress. Equal air entry bilateral, no wheezing/rales/rhonchi Abdomen: Soft , epigastric tenderness+ Bowel sounds are present, no mass palpable, no CVA tenderness Skin: Skin warm and dry. Normal skin color. Normal skin turgor. Extremities: No lower extremity edema. No calf tenderness Neuro: Oriented X 3. No motor deficit. MDM - Abdominal Pain MDM Narrative Medical decision making narrative: Patient feeling much better after Ativan sleeping at this time will discharge patient home with diagnosis of anxiety and gastritis Lab Data Attestation: I reviewed the patient's lab results. Result diagrams: 11/13/21 05:33 11/13/21 05:33 Labs: Lab Results 11/13/21 11/13/21 Range/Units 05:33 05:33 WBC 17.6 H (4.8-10.8) X10*3/uL RBC 4.43 (4.20-5.50) X10*6/uL Hgb 14.4 (12.0-16.0) g/dl Hct 41.2 (37.0-47.0) % MCV 93.0 (80.0-98.0) fL MCH 32.5 (27.0-33.0) pg MCHC 35.0 (31.0-35.0) g/dl RDW 13.0 (11.0-16.0) % Plt Count 538 H (160-400) X10*3/uL MPV 8.6 L (9.4-12.3) fL Immature Gran % (Auto) 0.5 H (0.0-0.4) % Neut % (Auto) 89.9 H (45-73) % Lymph % (Auto) 6.6 L (20-40) % Schleicher % (Auto) 2.7 (2-11) % Eos % (Auto) 0.1 (0-4) % Baso % (Auto) 0.2 (0-2) % Lymph # (Auto) 1.2 (1.2-4.9) X10*3/uL Schleicher # (Auto) 0.5 (0.1-1.2) X10*3/uL Eos # (Auto) 0.0 (0.0-0.4) X10*3/uL Baso # (Auto) 0.0 (0.0-0.2) X10*3/uL Abs Immat Gran (auto) 0.09 H (0.00-0.03) X10*3/uL Absolute Neuts (auto) 15.9 H (2.0-8.3) x10*3/uL Absolute Nucleated RBC 0.000 (0.0-0.012) X10*3/uL Nucleated RBC % (auto) 0.0 (0.0-0.2) /100WBC Sodium 138 (135-145) mmol/L Potassium 4.3 (3.3-5.1) mmol/L Chloride 101 (96-108) mmol/L Carbon Dioxide 18 L (22-29) mmol/L Anion Gap 23 H (12-20) BUN 21 H D (9-16) mg/dL Creatinine 0.83 (0.5-1.4) mg/dL Estim Creat Clear Calc 63.7 Estimated GFR > 60 Random Glucose 167 H (60-115) mg/dL Calcium 10.8 H D (8.4-10.2) mg/dL Total Bilirubin 0.5 (0.0-1.0) mg/dL AST 15 (5-31) U/L ALT 25 (0-31) U/L Alkaline Phosphatase 92 (39-117) U/L Total Protein 8.3 H D (6.5-8.0) g/dL Albumin 5.3 H D (3.5-5.0) g/dL Lipase 10 (8-78) U/L ECG Data Interpretation: Normal sinus rhythm heart rate 93 beats per minute normal interval normal axis , no acute ischemia Discharge Plan Discharge Clinical Impression: Acute gastritis, Anxiety Patient Disposition: Home, Self-Care Instructions: Gastritis (ED), Anxiety (ED) Additional Instructions: Drink plenty of fluid take medication for acid reflux and follow with PCP Prescriptions: New omeprazole 40 mg capsule,delayed release(DR/EC) 40 mg PO DAILY Qty: 20 0RF No Action oxycodone-acetaminophen 10-325 mg tablet 1 tab PO Q6H PRN (Reason: pain) 7 Days Qty: 28 0RF Rx Instructions: Partial Fill upon patient request. celecoxib 200 mg Capsule 200 mg PO BID 30 Days Qty: 60 0RF acetaminophen 325 mg Tablet 650 mg PO Q6H PRN (Reason: Pain, Mild (Pain Scale 1-3)) 30 Days Qty: 240 0RF docusate sodium 100 mg Capsule 100 mg PO BID 30 Days Qty: 60 0RF enoxaparin 40 mg/0.4 mL Syringe 40 mg subcut Q24H 42 Days Qty: 16.8 0RF oxycodone-acetaminophen [Percocet] 5-325 mg tablet 1 tab PO Q4-6H PRN (Reason: pain (scale score 4-6)) 7 Days Qty: 42 0RF oxycodone [OxyContin] 10 mg tablet,oral only,ext.rel.12 hr 10 mg PO Q12H 3 Days Qty: 6 0RF ondansetron 4 mg tablet,disintegrating 4 mg PO Q8H PRN (Reason: nausea and vomiting) Qty: 14 0RF
[2021-11-13] MEDS: 0.9 % Sodium Chloride 1,000 ML 999 ML IV (05:34)
[2021-11-13] MEDS: LORazepam 2 MG/ML VIAL 1 MG IVPUSH (05:35)
[2021-11-13] MEDS: Prochlorperazine Edisylate 10 MG/2 ML VIAL IVPUSH (05:36)
[2021-11-13 05:38] LABS: Basophils Percent Auto 0.2 % (0-2); Eosinophils Percent Auto 0.1 % (0-4); Hematocrit 41.2 % (37.0-47.0); Hemoglobin 14.4 g/dl (12.0-16.0); Imm Gran Abs Auto 0.09 X10*3/uL (0.00-0.03); Imm Gran Pct Auto 0.5 % (0.0-0.4); Lymphocytes Absolute Auto 1.2 X10*3/uL (1.2-4.9); Lymphocytes Percent Auto 6.6 % (20-40); MANUAL DIFF FLAG NO; Mean Corpuscular Hemoglobin 32.5 pg (27.0-33.0); Mean Platelet Volume 8.6 fL (9.4-12.3); Monocytes Absolute Auto 0.5 X10*3/uL (0.1-1.2); Monocytes Percent Auto 2.7 % (2-11); Neutrophils Absolute Auto 15.9 x10*3/uL (2.0-8.3); Neutrophils Percent Auto 89.9 % (45-73); Platelet Count 538 X10*3/uL (160-400); Red Blood Count 4.43 X10*6/uL (4.20-5.50); White Blood Count 17.6 X10*3/uL (4.8-10.8)
[2021-11-13] MEDS: Famotidine/PF 20 MG/2 ML VIAL IVPUSH (05:40)
[2021-11-13 05:46] VITALS: BP 149/99; PULSE 96; RESP 16; TEMP 36.6; O2SAT 99
[2021-11-13 06:01] LABS: Alanine Aminotransferase 25 U/L (0-31); Albumin Level 5.3 g/dL (3.5-5.0); Alkaline Phosphatase 92 U/L (39-117); Aspartate Amino Transferase 15 U/L (5-31); Bilirubin Total 0.5 mg/dL (0.0-1.0); Blood Urea Nitrogen 21 mg/dL (9-16); Creatinine Clr Calc Pharmacy 63.7; Estimated Glomerular Filt Rate > 60; Glucose Random 167 mg/dL (60-115); Lipase 10 U/L (8-78); Total Protein 8.3 g/dL (6.5-8.0)
[2021-11-13 06:10] LABS: Anion Gap 23 (12-20); Calcium 10.8 mg/dL (8.4-10.2); Carbon Dioxide 18 mmol/L (22-29); Chloride 101 mmol/L (96-108); Potassium 4.3 mmol/L (3.3-5.1); Sodium 138 mmol/L (135-145)
[2021-11-13 06:35] VITALS: BP 121/72; PULSE 94; RESP 0; TEMP 36.7; O2SAT 96
[2021-11-13 07:09] VITALS: RESP 12
== END 2021-11-13 07:26 | disposition home or self-care (01) ==
PROVIDERS: Emergency Provider Internal Medicine
DX: K29.00 Acute gastritis without bleeding (principal); F41.9 Anxiety disorder, unspecified; I10 Essential (primary) hypertension
CPT/HCPCS: 36415; 80053; 83690; 85025; 93005; 96361; 96374; 96375; 99284; J2060

== ENCOUNTER 2021-12-10 09:06 | Outpatient (REF) | payer MEDICAID, SELFPAY ==
--- NOTE | ~2021-12-10 | XR_ITS ---
EXAMINATION: XR KNEE AP STANDING XR KNEE, RIGHT CLINICAL INFORMATION: Knee pain. COMPARISON: Radiographs right knee 11/09/2021, 10/15/2021 TECHNIQUE: Standing AP view of both knees is performed along with lateral view of the right knee. FINDINGS: Right: There has been open reduction internal fixation of lateral tibial plateau fracture with lateral plate and multiple screws. There is also probable intraosseous reduction with bone cement showing mild increased attenuation similar to prior post operative images 11/09/2021. Fracture fragments are in near-anatomic alignment. There is no destructive process or osteolysis or periostitis. Small suprapatellar effusion is present. No knee joint compartment narrowing or erosive change. Left: No fracture or destructive process. No knee joint compartment narrowing or erosive change or chondrocalcinosis. XR/XR knee RT 1V IMPRESSION: Right: -Status post reduction internal fixation intra-articular tibial plateau fracture. -Hardware intact. No destructive process or osteolysis. -Small suprapatellar effusion. No joint narrowing or erosive change. Left: -No joint narrowing or erosive change.
--- NOTE | ~2021-12-10 | XR_ITS ---
EXAMINATION: XR KNEE AP STANDING XR KNEE, RIGHT CLINICAL INFORMATION: Knee pain. COMPARISON: Radiographs right knee 11/09/2021, 10/15/2021 TECHNIQUE: Standing AP view of both knees is performed along with lateral view of the right knee. FINDINGS: Right: There has been open reduction internal fixation of lateral tibial plateau fracture with lateral plate and multiple screws. There is also probable intraosseous reduction with bone cement showing mild increased attenuation similar to prior post operative images 11/09/2021. Fracture fragments are in near-anatomic alignment. There is no destructive process or osteolysis or periostitis. Small suprapatellar effusion is present. No knee joint compartment narrowing or erosive change. Left: No fracture or destructive process. No knee joint compartment narrowing or erosive change or chondrocalcinosis. XR/XR knee standing BI IMPRESSION: Right: -Status post reduction internal fixation intra-articular tibial plateau fracture. -Hardware intact. No destructive process or osteolysis. -Small suprapatellar effusion. No joint narrowing or erosive change. Left: -No joint narrowing or erosive change.
== END 2021-12-10 09:07 | disposition home or self-care (01) ==
LOC: HO.HOSX 09:06
PROVIDERS: Visit Provider Physician Assistant
DX: M25.561 Pain in right knee (principal)
CPT/HCPCS: 73560; 73565

== ENCOUNTER 2021-12-29 12:13 | Emergency (ER) | payer MEDICAID, SELFPAY ==
--- NOTE | ~2021-12-29 | CT_ITS ---
EXAMINATION: CT ABDOMEN AND PELVIS WITHOUT CONTRAST CLINICAL INFORMATION: Left lower quadrant pain COMPARISON: Previous CT of the abdomen and pelvis January 2020 TECHNIQUE: Multidetector volumetric imaging was performed from the superior aspect of the liver through the pubic symphysis. Sagittal and coronal reformatted images were obtained on the technologist's workstation. This CT examination was performed using dose optimization techniques as appropriate, variously including the following: *Automated exposure control *Adjustment of mA and/or kV according to patient size (this includes techniques or standardized protocols for targeted exams where dose is matched to indication/reason for exam; i.e. extremities or head) *Use of iterative reconstruction technique DLP: 311 mGy-cm FINDINGS: LUNG BASES: The visualized lung bases are unremarkable. LIVER, GALLBLADDER, AND BILIARY TREE: The liver is normal in size, shape, and attenuation. No focal hepatic lesion or biliary ductal dilatation is present. The gallbladder has been removed. PANCREAS: Unremarkable. SPLEEN: Unremarkable. ADRENAL GLANDS: Unremarkable. KIDNEYS AND URETERS: The kidneys are normal in size, shape, and attenuation. No hydronephrosis, hydroureter, or calculi seen. No perinephric stranding. BLADDER: Unremarkable. GASTROINTESTINAL TRACT: There is question of mild wall thickening and edema of the descending colon/mild colitis. Small and large bowel is otherwise normal. No evidence of obstruction, perforation or abscess is seen. ABDOMINAL WALL: No significant hernia is appreciated. LYMPH NODES: Normal. VASCULAR: Unremarkable. PELVIC VISCERA: Unremarkable. OSSEOUS STRUCTURES: Unremarkable. CT/CT abdomen pelvis wo con IMPRESSION: Question mild colitis of the left colon. Fleischner guidelines were followed.
[2021-12-29 12:24] VITALS: BP 127/104; PULSE 94; RESP 18; TEMP 36.9; O2SAT 98
[2021-12-29 12:35] VITALS: BP 140/80; PULSE 108; O2SAT 99; BMI 26.9
--- NOTE | 2021-12-29 12:53 | ED.GENADULT ---
HPI - General Adult General Chief complaint: Abdominal Pain Stated complaint: L LOW ABD PAIN SINCE TUESDAY Time Seen by Provider: 12/29/21 12:48 Source: patient and EMS Mode of arrival: EMS Limitations: no limitations History of Present Illness HPI narrative: Patient comes to the emergency room complaining of 4 days nausea and vomiting and left lower quadrant pain. Patient states that she has not been able to keep anything down, denies diarrhea. Patient states that she has not had any alcohol, cocaine or marijuana for over a week. Related Data Previous Rx's Medication Instructions Recorded ondansetron 4 mg disintegrating 4 mg PO Q8H PRN nausea and 10/16/21 tablet vomiting #14 tabs acetaminophen 325 mg tablet 650 mg PO Q6H PRN Pain, Mild (Pain 10/30/21 Scale 1-3) 30 days #240 tabs celecoxib 200 mg capsule 200 mg PO BID 30 days #60 caps 10/30/21 docusate sodium 100 mg capsule 100 mg PO BID 30 days #60 caps 10/30/21 enoxaparin 40 mg/0.4 mL 40 mg (0.4 mL) subcut Q24H 42 days 10/30/21 subcutaneous syringe #16.8 mL oxycodone 10 mg tablet,crush 10 mg PO Q12H 3 days #6 tabs 10/30/21 resistant,extended release 12 hr (OxyContin) oxycodone-acetaminophen 10 mg-325 1 tab PO Q6H PRN pain 7 days #28 11/05/21 mg tablet tabs omeprazole 40 mg capsule,delayed 40 mg PO DAILY #20 caps 11/13/21 release oxycodone-acetaminophen 5 mg-325 1 tab PO .qd PRN pain (scale score 12/21/21 mg tablet (Percocet) 4-6) 7 days #7 tabs ciprofloxacin HCl 500 mg tablet 500 mg PO BID #13 tabs 12/29/21 metronidazole 250 mg tablet 250 mg PO BID #14 tabs 12/29/21 ondansetron HCl 4 mg tablet 4 mg PO Q6H PRN nausea and 12/29/21 vomiting #10 tabs Allergies Allergy/AdvReac Type Severity Reaction Status Date / Time No Known Allergies Allergy Verified 12/29/21 12:34 [No Known Allergies*] Review of Systems Review of Systems: Constitutional : No Weight loss, No Fever, No Chills, No Night Sweats, No Fatigue, No Malaise ENT/Mouth : No Hearing loss, No Ear Pain, No Nasal Congestion, No Sinus Pain, No Hoarseness, No sore throat, No Rhinorrhea, No Swallowing Difficulty Eyes: No Eye Pain, No Swelling, No Redness, No Foreign Body, No Discharge, No Vision Changes Cardiovascular : No Chest Pain, No SOB, No Dyspnea on Exertion, No Orthopnea, No Edema, No Palpitations Respiratory : No Cough, No Sputum, No Wheezing, No Smoke Exposure, No Dyspnea Gastrointestinal : Complaining of vomiting, dry heaving, no diarrhea, complaining of constant left lower quadrant pain. Genitourinary : no irregular bleeding, No Dysuria, No Urinary Frequency, No Hematuria, No Urinary Incontinence, No Urgency, No Flank Pain, No Urinary Flow Changes, No Hesitancy Musculoskeletal : No joint pain, No Myalgias, No Joint Swelling Skin : No Skin Lesions, No rash Neuro : No Weakness, No Numbness, No Paresthesias, No Loss of Consciousness, No Dizziness, No Headache Psych : No Anxiety/Panic, No Depression, No SI/HI/AH/VH, No Social Issues, Heme/Lymph: No Bruising, No Bleeding,No Lymphadenopathy Endocrine : No Polyuria, No Polydipsia, No Temperature Intolerance [facility] Past Medical History Medical History Acid reflux Anxiety Hypertension IBS (irritable bowel syndrome) Polysubstance abuse Surgical History History of 2 sections History of carpal tunnel surgery Hx of cholecystectomy Family History Family History Father Colon cancer Liver cancer Social History Social History Household Members: None Household Members Other:: 2 kids Housing: Apartment Do you presently have visiting nurse or other home services: No Alcohol intake: former Patient Tobacco Use Status: Current everyday Tobacco user Tobacco use type: Cigarette Cigarette Packs Per Day: 3 Cigarettes Per Day: 2 Smoked in Last 30 Days: Yes Second Hand Smoke Exposure: No Substance Use Type: Marijuana Advance Directives: No Advance Directives Information Provided: Yes Current occupational status: unemployed 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 Oriented X3. Anxious, crying, seems very nauseous Eyes: Pupils equal, round and reactive to light. ENT: Pharynx normal. Neck: Normal inspection. Neck supple. No lymph nodes noted. No crepitus CVS: Normal heart rate and rhythm. Pulses normal. Normal S1 and S2 Respiratory: No respiratory distress. Breath sounds normal. No Wheezing. No rales Abdomen: Soft, does not seem to be tender in any of the quadrants on deep palpation Skin: Skin warm, mildly diaphoretic Normal skin color. Normal skin turgor. Extremities: No lower extremity edema. No Lacerations. No Rash Neuro: Oriented X 3. No motor deficit. No sensory deficit. Moving all extremities. No slurred speech. CN 2 through 12 grossly intact Psych: calm, cooperative, normal affect Course Course Course Narrative: Patient's labs are pending, patient received IV fluids, Reglan and famotidine. CT scan pending. Patient very anxious, patient giving additional p.o. Ativan and IV Benadryl. Patient no longer vomiting, sleeping comfortably. CT scan shows possible colitis. Patient was given p.o. levofloxacin and metronidazole. Patient has a white blood cell count of 12.3 which is chronic for the patient, likely secondary to cyclical vomiting. Patient tolerated well PO, patient refer discharge Medical Decision Making Lab Data Result diagrams: 12/29/21 13:45 12/29/21 13:45 Labs: Lab Results 12/29/21 12/29/21 12/29/21 Range/Units 13:45 13:45 13:45 WBC 12.3 H (4.8-10.8) X10*3/uL RBC 5.01 (4.20-5.50) X10*6/uL Hgb 16.0 (12.0-16.0) g/dl Hct 45.7 (37.0-47.0) % MCV 91.2 (80.0-98.0) fL MCH 31.9 (27.0-33.0) pg MCHC 35.0 (31.0-35.0) g/dl RDW 11.9 (11.0-16.0) % Plt Count 398 D (160-400) X10*3/uL MPV 8.8 L (9.4-12.3) fL Immature Gran % (Auto) 0.6 H (0.0-0.4) % Neut % (Auto) 70.1 (45-73) % Lymph % (Auto) 16.3 L (20-40) % [place] % (Auto) 12.6 H (2-11) % Eos % (Auto) 0.2 (0-4) % Baso % (Auto) 0.2 (0-2) % Lymph # (Auto) 2.0 (1.2-4.9) X10*3/uL [place] # (Auto) 1.6 H (0.1-1.2) X10*3/uL Eos # (Auto) 0.0 (0.0-0.4) X10*3/uL Baso # (Auto) 0.0 (0.0-0.2) X10*3/uL Abs Immat Gran (auto) 0.07 H (0.00-0.03) X10*3/uL Absolute Neuts (auto) 8.7 H (2.0-8.3) x10*3/uL Absolute Nucleated RBC 0.000 (0.0-0.012) X10*3/uL Nucleated RBC % (auto) 0.0 (0.0-0.2) /100WBC Smear Tech's Comments VERIFIED Sodium 135 (135-145) mmol/L Potassium 3.7 (3.3-5.1) mmol/L Chloride 94 L (96-108) mmol/L Carbon Dioxide 26 (22-29) mmol/L Anion Gap 19 (12-20) BUN 18 H (9-16) mg/dL Creatinine 0.71 (0.5-1.4) mg/dL Estim Creat Clear Calc 76.0 Estimated GFR > 60 Random Glucose 103 (60-115) mg/dL Calcium 10.4 H (8.4-10.2) mg/dL Magnesium 2.4 (1.6-2.6) mg/dL Total Bilirubin 0.5 (0.0-1.0) mg/dL Direct Bilirubin 0.2 (0.0-0.5) mg/dL AST 21 (5-31) U/L ALT 30 (0-31) U/L Alkaline Phosphatase 76 (39-117) U/L Total Protein 7.8 (6.5-8.0) g/dL Albumin 5.1 H (3.5-5.0) g/dL Lipase 46 (8-78) U/L Beta HCG, Quant < 2 mIU/mL Ethyl Alcohol < 10 mg/dL Imaging Data CT scan - abdomen: Radiologist's impression: FINDINGS: LUNG BASES: The visualized lung bases are unremarkable.? LIVER, GALLBLADDER, AND BILIARY TREE: The liver is normal in size, shape, and attenuation. No focal hepatic lesion or biliary ductal dilatation is present. The gallbladder has been removed. PANCREAS: Unremarkable.? SPLEEN: Unremarkable.? ADRENAL GLANDS: Unremarkable.? KIDNEYS AND URETERS: The kidneys are normal in size, shape, and attenuation. No hydronephrosis, hydroureter, or calculi seen. No perinephric stranding. ? BLADDER: Unremarkable.? GASTROINTESTINAL TRACT: There is question of mild wall thickening and edema of the descending colon/mild colitis. Small and large bowel is otherwise normal. No evidence of obstruction, perforation or abscess is seen.? ABDOMINAL WALL: No significant hernia is appreciated.? LYMPH NODES: Normal. VASCULAR: Unremarkable. PELVIC VISCERA: Unremarkable.? OSSEOUS STRUCTURES: Unremarkable.? CT/CT abdomen pelvis wo con IMPRESSION: Question mild colitis of the left colon. ? Fleischner guidelines were followed. Discharge Plan Discharge Clinical Impression: Cyclical vomiting, Colitis Patient Disposition: Home, Self-Care Instructions: Colitis (ED), Cyclic Vomiting Syndrome (ED) Additional Instructions: Please follow-up with your primary care physician tomorrow. If you have any worsening or new symptoms, please return to the emergency room or call 911 Prescriptions: New ondansetron HCl 4 mg tablet 4 mg PO Q6H PRN (Reason: nausea and vomiting) Qty: 10 0RF metronidazole 250 mg tablet 250 mg PO BID Qty: 14 0RF ciprofloxacin HCl 500 mg tablet 500 mg PO BID Qty: 13 0RF No Action oxycodone-acetaminophen 10-325 mg tablet 1 tab PO Q6H PRN (Reason: pain) 7 Days Qty: 28 0RF Rx Instructions: Partial Fill upon patient request. oxycodone-acetaminophen [Percocet] 5-325 mg tablet 1 tab PO .qd PRN (Reason: pain (scale score 4-6)) 7 Days Qty: 7 0RF celecoxib 200 mg Capsule 200 mg PO BID 30 Days Qty: 60 0RF acetaminophen 325 mg Tablet 650 mg PO Q6H PRN (Reason: Pain, Mild (Pain Scale 1-3)) 30 Days Qty: 240 0RF docusate sodium 100 mg Capsule 100 mg PO BID 30 Days Qty: 60 0RF enoxaparin 40 mg/0.4 mL Syringe 40 mg subcut Q24H 42 Days Qty: 16.8 0RF oxycodone [OxyContin] 10 mg tablet,oral only,ext.rel.12 hr 10 mg PO Q12H 3 Days Qty: 6 0RF omeprazole 40 mg capsule,delayed release(DR/EC) 40 mg PO DAILY Qty: 20 0RF ondansetron 4 mg tablet,disintegrating 4 mg PO Q8H PRN (Reason: nausea and vomiting) Qty: 14 0RF
[2021-12-29] MEDS: Metoclopramide HCl 10 MG/2 ML VIAL IVPUSH (13:45)
[2021-12-29] MEDS: Famotidine/PF 20 MG/2 ML VIAL IVPUSH (13:45)
[2021-12-29] MEDS: 0.9 % Sodium Chloride 2,000 ML 999 ML IVCONT (13:45)
[2021-12-29 13:55] LABS: Basophils Percent Auto 0.2 % (0-2); Eosinophils Percent Auto 0.2 % (0-4); Hematocrit 45.7 % (37.0-47.0); Imm Gran Abs Auto 0.07 X10*3/uL (0.00-0.03); Imm Gran Pct Auto 0.6 % (0.0-0.4); Lymphocytes Percent Auto 16.3 % (20-40); MANUAL DIFF FLAG SCAN; Mean Corpuscular Hemoglobin 31.9 pg (27.0-33.0); Mean Corpuscular Volume 91.2 fL (80.0-98.0); Mean Platelet Volume 8.8 fL (9.4-12.3); Monocytes Absolute Auto 1.6 X10*3/uL (0.1-1.2); Monocytes Percent Auto 12.6 % (2-11); Neutrophils Absolute Auto 8.7 x10*3/uL (2.0-8.3); Neutrophils Percent Auto 70.1 % (45-73); Platelet Count 398 X10*3/uL (160-400); Red Blood Count 5.01 X10*6/uL (4.20-5.50); Red Cell Distribution Width 11.9 % (11.0-16.0); SCAN SMEAR FLAG 1; White Blood Count 12.3 X10*3/uL (4.8-10.8)
[2021-12-29 14:14] LABS: Ethanol < 10 mg/dL
[2021-12-29] MEDS: diphenhydrAMINE HCL 50 MG/ML VIAL IVPUSH (14:16)
--- NOTE | 2021-12-29 14:16 | PC.NURSE ---
Administered medication per MAR
[2021-12-29] MEDS: Prochlorperazine Edisylate 10 MG/2 ML VIAL IVPUSH (14:17)
[2021-12-29] MEDS: LORazepam 1 MG TABLET 2 MG PO (14:17)
[2021-12-29 14:19] LABS: Alanine Aminotransferase 30 U/L (0-31); Albumin Level 5.1 g/dL (3.5-5.0); Alkaline Phosphatase 76 U/L (39-117); Anion Gap 19 (12-20); Aspartate Amino Transferase 21 U/L (5-31); Bilirubin Direct 0.2 mg/dL (0.0-0.5); Bilirubin Total 0.5 mg/dL (0.0-1.0); Blood Urea Nitrogen 18 mg/dL (9-16); Calcium 10.4 mg/dL (8.4-10.2); Carbon Dioxide 26 mmol/L (22-29); Chloride 94 mmol/L (96-108); Estimated Glomerular Filt Rate > 60; Glucose Random 103 mg/dL (60-115); Lipase 46 U/L (8-78); Magnesium 2.4 mg/dL (1.6-2.6); Potassium 3.7 mmol/L (3.3-5.1); Sodium 135 mmol/L (135-145); Total Protein 7.8 g/dL (6.5-8.0)
[2021-12-29 14:21] LABS: SLIDE REVIEW VERIFIED
[2021-12-29 14:37] VITALS: BP 170/101; PULSE 66; RESP 16; O2SAT 98
[2021-12-29 14:45] LABS: HCG Quantitative < 2 mIU/mL
[2021-12-29 16:00] VITALS: BP 131/76; PULSE 56; RESP 16; TEMP 36.6; O2SAT 98
[2021-12-29] MEDS: metroNIDAZOLE 500 MG TABLET PO (17:46)
[2021-12-29] MEDS: levoFLOXacin 500 MG TABLET PO (17:47)
[2021-12-29 18:00] VITALS: BP 123/78; PULSE 63; RESP 16; TEMP 36.6; O2SAT 98
--- NOTE | 2021-12-29 18:51 | PC.NURSE ---
PATIENT REFUSED TO GIVE URINE SAMPLE ,RN AWARE .
[2021-12-29 20:00] VITALS: BP 137/86; PULSE 71; RESP 16; TEMP 36.9; O2SAT 98
--- NOTE | 2021-12-29 20:20 | PC.NURSE ---
PATIENT WAS GIVEN A DINNER ATE 100 % TOLERATED WELL .
== END 2021-12-29 20:35 | disposition home or self-care (01) ==
PROVIDERS: Emergency Provider Emergency Medicine
DX: K52.9 Noninfective gastroenteritis and colitis, unspecified (principal); R11.15 Cyclical vomiting syndrome unrelated to migraine; F17.210 Nicotine dependence, cigarettes, uncomplicated; F12.90 Cannabis use, unspecified, uncomplicated; Z79.899 Other long term (current) drug therapy
CPT/HCPCS: 36415; 74176; 80048; 80076; 82077; 83690; 83735; 84702; 85025; 96361; 96374; 96375; 99284; J1200; J2765

== ENCOUNTER 2022-01-21 08:06 | Outpatient (REF) | payer MEDICAID, SELFPAY ==
--- NOTE | ~2022-01-21 | XR_ITS ---
EXAMINATION: XR KNEES, STANDING AP XR KNEE, RIGHT CLINICAL INFORMATION: Knee pain COMPARISON: Standing AP knees 12/10/2021, right knee radiographs 11/09/2021 TECHNIQUE: Standing AP view of both knees is performed. Additional lateral and axial patella views of the right knee are also obtained. FINDINGS: Right: There is been prior open reduction internal fixation right proximal tibial fracture. Hardware is intact. Fracture lines and no longer clearly visible. There is no destructive process or osteolysis. No acute fracture or dislocation or destructive process. No interval joint narrowing or erosive change. Trace suprapatellar fluid is decreased. There is mild lateral tilting patella. No lateralization. Left: No knee joint compartment narrowing or erosive change. No chondrocalcinosis. XR/XR knee RT 2V IMPRESSION: Right: -Postsurgical changes proximal right tibia. Fracture lines no longer clearly visible. - No acute fracture, destructive process, or osteolysis. Trace suprapatellar fluid. Left: -No joint narrowing or erosive change.
--- NOTE | ~2022-01-21 | XR_ITS ---
EXAMINATION: XR KNEES, STANDING AP XR KNEE, RIGHT CLINICAL INFORMATION: Knee pain COMPARISON: Standing AP knees 12/10/2021, right knee radiographs 11/09/2021 TECHNIQUE: Standing AP view of both knees is performed. Additional lateral and axial patella views of the right knee are also obtained. FINDINGS: Right: There is been prior open reduction internal fixation right proximal tibial fracture. Hardware is intact. Fracture lines and no longer clearly visible. There is no destructive process or osteolysis. No acute fracture or dislocation or destructive process. No interval joint narrowing or erosive change. Trace suprapatellar fluid is decreased. There is mild lateral tilting patella. No lateralization. Left: No knee joint compartment narrowing or erosive change. No chondrocalcinosis. XR/XR knee standing BI IMPRESSION: Right: -Postsurgical changes proximal right tibia. Fracture lines no longer clearly visible. - No acute fracture, destructive process, or osteolysis. Trace suprapatellar fluid. Left: -No joint narrowing or erosive change.
== END 2022-01-21 08:07 | disposition home or self-care (01) ==
LOC: HO.HOSX 08:06
PROVIDERS: Visit Provider Physician Assistant
DX: M25.561 Pain in right knee (principal)
CPT/HCPCS: 73560; 73565

== ENCOUNTER 2022-03-04 07:55 | Outpatient (REF) | payer MEDICAID, SELFPAY ==
--- NOTE | ~2022-03-04 | XR_ITS ---
EXAMINATION: XR KNEE, BILATERAL XR KNEE, RIGHT CLINICAL INFORMATION: Pain. COMPARISON: Previous x-ray most recent December 2021. TECHNIQUE: Standing AP view of both knees and lateral and sunrise view of the right knee. FINDINGS: Right: There is a plate and screws transfixing a lateral tibial plateau fracture. Orthopedic hardware appears unchanged. Lateral tibial plateau fracture does not appear appreciably changed. Bones are osteopenic. Joint spaces are normal. There is a joint effusion. Standing AP view of the left knee is unremarkable. XR/XR knee standing BI IMPRESSION: Healing right lateral tibial plateau fracture. No appreciable change most recent exam December 2021.
--- NOTE | ~2022-03-04 | XR_ITS ---
EXAMINATION: XR KNEE, BILATERAL XR KNEE, RIGHT CLINICAL INFORMATION: Pain. COMPARISON: Previous x-ray most recent December 2021. TECHNIQUE: Standing AP view of both knees and lateral and sunrise view of the right knee. FINDINGS: Right: There is a plate and screws transfixing a lateral tibial plateau fracture. Orthopedic hardware appears unchanged. Lateral tibial plateau fracture does not appear appreciably changed. Bones are osteopenic. Joint spaces are normal. There is a joint effusion. Standing AP view of the left knee is unremarkable. XR/XR knee RT 2V IMPRESSION: Healing right lateral tibial plateau fracture. No appreciable change most recent exam December 2021.
== END 2022-03-04 07:56 | disposition home or self-care (01) ==
LOC: HO.HOSX 07:55
PROVIDERS: Visit Provider Physician Assistant
DX: M25.561 Pain in right knee (principal); R10.9 Unspecified abdominal pain; R11.2 Nausea with vomiting, unspecified
CPT/HCPCS: 73560; 73565; 99202

== ENCOUNTER 2022-03-18 10:53 | Outpatient (REF) | payer MEDICAID, SELFPAY ==
[2022-03-18 12:02] LABS: MANUAL DIFF FLAG NO
[2022-03-18 12:30] LABS: Basophils Absolute Auto 0.1 X10*3/uL (0.0-0.2); Basophils Percent Auto 0.8 % (0-2); Eosinophils Absolute Auto 0.5 X10*3/uL (0.0-0.4); Eosinophils Percent Auto 5.3 % (0-4); Hematocrit 41.6 % (37.0-47.0); Hemoglobin 13.6 g/dl (12.0-16.0); Imm Gran Abs Auto 0.06 X10*3/uL (0.00-0.03); Imm Gran Pct Auto 0.6 % (0.0-0.4); Lymphocytes Absolute Auto 2.8 X10*3/uL (1.2-4.9); Lymphocytes Percent Auto 29.2 % (20-40); Mean Corpuscular HGB Conc 32.7 g/dl (31.0-35.0); Mean Corpuscular Hemoglobin 31.2 pg (27.0-33.0); Mean Corpuscular Volume 95.4 fL (80.0-98.0); Mean Platelet Volume 9.1 fL (9.4-12.3); Monocytes Absolute Auto 0.8 X10*3/uL (0.1-1.2); Monocytes Percent Auto 7.8 % (2-11); Neutrophils Absolute Auto 5.4 x10*3/uL (2.0-8.3); Neutrophils Percent Auto 56.3 % (45-73); Platelet Count 362 X10*3/uL (160-400); Red Blood Count 4.36 X10*6/uL (4.20-5.50); Red Cell Distribution Width 12.8 % (11.0-16.0); White Blood Count 9.6 X10*3/uL (4.8-10.8)
[2022-03-18 12:55] LABS: Alanine Aminotransferase 11 U/L (0-31); Albumin Level 4.4 g/dL (3.5-5.0); Alkaline Phosphatase 80 U/L (39-117); Anion Gap 13 (12-20); Aspartate Amino Transferase 13 U/L (5-31); Bilirubin Total < 0.2 mg/dL (0.0-1.0); Blood Urea Nitrogen 15 mg/dL (9-16); Carbon Dioxide 23 mmol/L (22-29); Chloride 107 mmol/L (96-108); Estimated Glomerular Filt Rate > 60; Glucose Random 98 mg/dL (60-115); Potassium 4.8 mmol/L (3.3-5.1); Sodium 138 mmol/L (135-145); Total Protein 6.8 g/dL (6.5-8.0)
[2022-03-19 14:17] LABS: H Pylori Breath Test Negative (Negative)
== END 2022-03-18 10:54 | disposition home or self-care (01) ==
LOC: HO.LAB 10:53
PROVIDERS: PCP Pediatrics; Referring Provider Pediatrics; Visit Provider Physician Assistant
DX: K52.9 Noninfective gastroenteritis and colitis, unspecified (principal); K58.9 Irritable bowel syndrome, unspecified; A04.8 Other specified bacterial intestinal infections
CPT/HCPCS: 36415; 80053; 83013; 85025; 99211

== ENCOUNTER 2022-04-30 | Outpatient (REF) | payer MEDICAID, SELFPAY ==
--- NOTE | ~2022-04-30 | XR_ITS ---
EXAMINATION: XR knee standing BI, XR knee RT 2V CLINICAL INFORMATION: Reason for Exam M25.569 - Pain in unspecified knee COMPARISON: 03/04/2022 TECHNIQUE: 2 views of the right knee and standing views of bilateral knees XR/XR knee standing BI FINDINGS/IMPRESSION: * Postoperative changes of the lateral right tibia without evidence of hardware complication. There is been interval healing of tibial plateau fracture which is less conspicuous on today's study. Small right suprapatellar effusion.
--- NOTE | ~2022-04-30 | XR_ITS ---
EXAMINATION: XR knee standing BI, XR knee RT 2V CLINICAL INFORMATION: Reason for Exam M25.569 - Pain in unspecified knee COMPARISON: 03/04/2022 TECHNIQUE: 2 views of the right knee and standing views of bilateral knees XR/XR knee RT 2V FINDINGS/IMPRESSION: * Postoperative changes of the lateral right tibia without evidence of hardware complication. There is been interval healing of tibial plateau fracture which is less conspicuous on today's study. Small right suprapatellar effusion.
== END 2022-04-30 00:01 | disposition home or self-care (01) ==
LOC: HO.HOSX
PROVIDERS: Visit Provider Physician Assistant
DX: S82.141A Displaced bicondylar fracture of right tibia, initial encounter for closed fracture (principal)
CPT/HCPCS: 73560; 73565; 99212

== ENCOUNTER 2022-07-29 09:10 | Outpatient (REF) | payer MEDICAID, SELFPAY | END 2022-07-29 09:11 | disposition home or self-care (01) | LOC: HO.HOSX 09:10 | PROVIDERS: Visit Provider Orthopaedic Surgery | DX: Z13.89 Encounter for screening for other disorder (principal) ==

== ENCOUNTER 2022-08-23 12:20 | Outpatient (REF) | payer MEDICAID, SELFPAY | END 2022-08-23 12:21 | disposition home or self-care (01) | LOC: HO.HOSX 12:20 | PROVIDERS: Visit Provider Orthopaedic Surgery | DX: Z13.89 Encounter for screening for other disorder (principal) ==

== ENCOUNTER 2022-10-07 09:35 | Outpatient (REF) | payer MEDICAID, SELFPAY ==
--- NOTE | ~2022-10-07 | XR_ITS ---
EXAMINATION: XR KNEES XR KNEE, RIGHT COMPARISON: Standing image of the knees are compared to previous dated 04/30/2022. FINDINGS: The standing image is comparable to previous. Hardware on the right is seen without change in position. Some loss of joint space bilaterally in the knees. The 2 detailed imaging of the right knee demonstrates again no change from previous. Hardware is unchanged in position. No acute finding. No bony erosion. The patella appears well seated on the sunrise image. XR/XR knee RT 2V IMPRESSION: Findings are noted above. No change in appearance of the proximal tibia. No acute finding.
--- NOTE | ~2022-10-07 | XR_ITS ---
EXAMINATION: XR KNEES XR KNEE, RIGHT COMPARISON: Standing image of the knees are compared to previous dated 04/30/2022. FINDINGS: The standing image is comparable to previous. Hardware on the right is seen without change in position. Some loss of joint space bilaterally in the knees. The 2 detailed imaging of the right knee demonstrates again no change from previous. Hardware is unchanged in position. No acute finding. No bony erosion. The patella appears well seated on the sunrise image. XR/XR knee standing BI IMPRESSION: Findings are noted above. No change in appearance of the proximal tibia. No acute finding.
== END 2022-10-07 09:36 | disposition home or self-care (01) ==
LOC: HO.HOSX 09:35
PROVIDERS: Visit Provider Orthopaedic Surgery
DX: M25.561 Pain in right knee (principal)
CPT/HCPCS: 73560; 73565; 99212

== ENCOUNTER 2023-06-20 14:12 | Outpatient (AMB) | payer MEDICAID, SELFPAY ==
[2023-06-20 14:15] VITALS: BMI 24.7
--- NOTE | 2023-06-20 14:15 | MHC.OFFVIS ---
Intake Vital Signs 06/20/23 14:15 Height 4 ft 8 in Weight 110 lb BMI 24.7 Intake Visit Reasons: New Prob- CTS L hand Intake Note: Rambo a 37 year old right hand dominant female presents today for an evaluation of left hand. Patient reports having right CTR done about 3-4 years ago and was told she would need to have her left hand done as well. Currently complains of pain, numbness and tingling at her CMC, MF and SF that radiates into her wrist and up her arm. She would like to discuss surgery. Allergies No Known Allergies [No Known Allergies*] Allergy (Verified 06/20/23 14:18) HPI New Prob- CTS L hand HPI Details 37-year-old right hand dominant female who presents to the office today for evaluation of left-hand. She states she has pain, numbness and tingling in her CMC, middle finger and small finger which radiates into her wrist and up to her arm. She is wearing an yusuf wrap prn. She has a history of right CTR about 4 years ago. [facility] Medical History (Updated 06/20/23 @ 19:26 by Blank Cantu PA-C) Hypertension Polysubstance abuse Acid reflux Anxiety IBS (irritable bowel syndrome) Surgical History (Updated 06/20/23 @ 14:20 by MURIEL Comer) S/P ORIF (open reduction internal fixation) fracture (10/29/21) History of carpal tunnel surgery Hx of cholecystectomy History of 2 sections Family History Father Colon cancer Liver cancer Social History Household Members: None Household Members Other:: 2 kids Housing: Apartment Do you presently have visiting nurse or other home services: No Alcohol intake: former Patient Tobacco Use Status: Current everyday Tobacco user Tobacco use type: Cigarette Cigarette Packs Per Day: 3 Cigarettes Per Day: 2 Second Hand Smoke Exposure: No Substance Use Type: Marijuana Current occupational status: unemployed 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 Tenderness over the carpal canal. Numbness and tingling over the median nerve distribution of the right hand. Able to make a full fist and fully extend all fingers. Positive Tinel's. She has tenderness over the radial styloid. Positive Kristopher?s. Assessment & Plan Assessment & Plan (1) Carpal tunnel syndrome on right: Code(s): G56.01 - Carpal tunnel syndrome, right upper limb (2) De Quervain's tenosynovitis, right: Code(s): M65.4 - Radial styloid tenosynovitis [de Quervain] Plan An EMG/nerve conduction study has been ordered of the MANSI to further evaluate the etiology of her numbness. She was also fit for a Velcro thumb spica wrist splint to help her at night. She will see us back once the study is complete. Orders: Orders NE electromyogram (EMG) Today R20.0 - Anesthesia of skin, R20.2 - Paresthesia of skin NE nerve conduction velocity Today R20.0 - Anesthesia of skin, R20.2 - Paresthesia of skin Patient Instructions: Scribed for Blank Cantu PA-C, by Costa Webb dental assistant medical assistant, on 06/20/2023 at 2:30 PM EST. IBlank PA-C, have personally reviewed and agree with the information entered by the scribe. Coding Level of Care Code Est Pt Level 3 (76182) Diagnoses Carpal tunnel syndrome on right G56.01 De Quervain's tenosynovitis, right M65.4
== END 2023-06-20 14:42 | disposition home or self-care (01) ==
PROVIDERS: PCP Pediatrics; Visit Provider Physician Assistant
DX: G56.01 Carpal tunnel syndrome, right upper limb (principal); M65.4 Radial styloid tenosynovitis [de Quervain]
CPT/HCPCS: 99213

== ENCOUNTER → 2023-06-20 14:12 | Outpatient (BNVA) | payer MEDICAID, SELFPAY | PROVIDERS: PCP Pediatrics; Visit Provider Physician Assistant | DX: G56.01 Carpal tunnel syndrome, right upper limb (principal); M65.4 Radial styloid tenosynovitis [de Quervain] | CPT/HCPCS: 99212 ==

== ENCOUNTER 2023-07-03 14:38 | Emergency (ER) | payer MEDICAID, SELFPAY ==
--- NOTE | ~2023-07-03 | XR_ITS ---
EXAMINATION: XR CHEST CLINICAL INFORMATION: Chest pain COMPARISON: None available. TECHNIQUE: 2 views of the chest were obtained. FINDINGS: No significant abnormality is noted involving the heart, lungs, mediastinum, bony thorax or soft tissues. XR/XR chest 2V IMPRESSION: Unremarkable examination.
[2023-07-03 14:49] VITALS: BP 138/64; PULSE 110; O2SAT 98
[2023-07-03 14:55] VITALS: BP 146/78; PULSE 96; RESP 18; TEMP 36.8; O2SAT 98; BMI 21.9
--- NOTE | 2023-07-03 15:03 | ECG_ITS ---
Test Reason : ETOH Blood Pressure : / mmHG Vent. Rate : 089 BPM Atrial Rate : 089 BPM P-R Int : 152 ms QRS Dur : 082 ms QT Int : 364 ms P-R-T Axes : 060 048 032 degrees QTc Int : 442 ms Normal sinus rhythm Normal ECG When compared with ECG of 13-NOV-2021 05:15, No significant change was found Referred By: Fatoumata Barnett Electronically Signed By:SHELIA BLOUNT
--- NOTE | 2023-07-03 15:09 | ED.GENADULT ---
HPI - General Adult General Chief complaint: ETOH/Substance Use Stated complaint: CHEST PAIN DEPRESSION DRUG USE Time Seen by Provider: 07/03/23 15:04 Source: patient Mode of arrival: EMS Limitations: no limitations History of Present Illness HPI narrative: Patient is a 37-year-old female who presents to the emergency department reporting chest pain. She reports substernal chest pain radiating to the left anterior chest and left shoulder intermittently over the past 3 weeks. States it typically occurs for a few minutes before self-resolving. Described as a pressure sensation. She also reports intermittent headache over the past few weeks without specific localization and inability to describe quality but states it seems unrelated to the periods of when she has chest pain. She denies associated fevers, chills, neck pain, neck stiffness, vision changes, dizziness, lightheadedness, shortness of breath, difficulty breathing, numbness or tingling of her extremities, weakness. She does state that she has been feeling increasingly depressed and anxious recently, she takes hydroxyzine but does not feel as though this is helping, she is interested in ?speaking with someone? as she feels as though she needs assistance in managing her depression and anxiety. She denies any suicidal or homicidal ideations. She states that yesterday she smoked crack cocaine for the 1st time, and she felt increasingly more anxious today which prompted her to ask her daughter to call for EMS. She denies any additional recreational drug or alcohol usage. Related Data Home Medications Medication Instructions Recorded Confirmed hydroxyzine HCl 25 mg tablet 25 mg PO TID PRN Itching 07/03/23 07/03/23 Allergies Allergy/AdvReac Type Severity Reaction Status Date / Time No Known Allergies Allergy Verified 06/20/23 14:18 [No Known Allergies*] Review of Systems Review of Systems: Yes all other systems are reviewed and are negative [facility] Past Medical History Attestation statement: The following information was validated with the patient. Source: old records reviewed Medical History Hypertension Polysubstance abuse Acid reflux Anxiety IBS (irritable bowel syndrome) Surgical History S/P ORIF (open reduction internal fixation) fracture (10/29/21) History of carpal tunnel surgery Hx of cholecystectomy History of 2 sections Family History Family History Father Colon cancer Liver cancer Social History Social History Household Members: None Household Members Other:: 2 kids Housing: Apartment Do you presently have visiting nurse or other home services: No Alcohol intake: current Patient Tobacco Use Status: Current everyday Tobacco user Tobacco use type: Cigarette Cigarette Packs Per Day: 3 Cigarettes Per Day: 2 Smoked in Last 30 Days: Yes Second Hand Smoke Exposure: No Use of substances other than those prescribed or required for medical reasons: Yes Substance Use Type: Marijuana Substance Use Frequency: Daily Advance Directives: No Advance Directives Information Provided: No Current occupational status: unemployed 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 No acute distress.?Normal affect. Eyes: Pupils equal, round and reactive to light.? ENT: Pharynx normal.?? Neck: Normal inspection.? Neck supple.?? CVS: Heart sounds normal. Normal heart rate and rhythm.? Pulses normal.?? Respiratory: No respiratory distress.? Lung sounds clear to auscultation bilaterally?? Abdomen: Soft and non-tender. Normoactive bowel sounds. No pulsatile mass.?? Skin: Skin warm and dry.? Normal skin color.? Normal skin turgor.?? Extremities: No lower extremity edema.? No calf ttp? Neuro: Moves all extremities spontaneously. Sensation intact bilaterally. CN II-XII intact. No focal neuro deficits. Ambulates with normal steady gait. Course Reevaluation(s) Reevaluation #1: CBC is without leukocytosis or anemia. Coags normal. Overall unremarkable CMP. High sensitive troponin below detectable limits, EKG revealing normal sinus rhythm, ventricular rate of 89, QTC 442, no ST-elevation, no ST-depression, doubt ACS given duration symptoms. HCG negative. Urine toxicology pending at this time. CXR is without acute cardiopulmonary abnormality. Atypical chest pain, concern for anxiety related. Placed in physician observation so that care team evaluation can ensue. Vital signs stable. Signed out to Alan ZEPEDA Time: 17:24 Reevaluation #2: Awaiting utox, patient anxious, will medicate with 1 time dose of Ativan 1 mg p.o. Time: 18:11 Reevaluation #3: U tox positive for cocaine, and marijuana. Patient remained stable. Patient medically cleared, care team consult and evaluation pending. Will continue to monitor Time: 20:04 Additional Reevaluation(s): pateint wants to leave no SI/HI at this time stable for [facility] 314am - SAYRA Medications Administered Discontinued Medications Generic Name Dose Route Start Last Admin Trade Name Freq PRN Reason Stop Dose Admin Acetaminophen 975 mg 07/03/23 18:35 07/03/23 18:40 Acetaminophen 325 Mg Tablet PO 07/03/23 18:36 975 mg ONCE ONE Administration Lorazepam 1 mg 07/03/23 18:11 07/03/23 18:20 Lorazepam 1 Mg Tablet PO 07/03/23 18:12 1 mg ONCE ONE Administration Medical Decision Making Medical Decision Making MDM Narrative: Patient is a 37-year-old female with past medical history of de Quervain tenosynovitis, carpal tunnel syndrome, GERD, IBS, hypertension, polysubstance use presenting to emergency department for evaluation of chest pain. Vital signs are stable, no apparent distress. Will obtain CBC to evaluate for leukocytosis/ anemia, CMP and lipase to evaluate for abnormal electrolytes /abnormal renal function/ abnormal hepatic/biliary function, EKG and troponin to evaluate for ischemia/ACS. Wells negative, unlikely PE. Chest x-ray to evaluate for consolidation/ infiltrate/ mass/ pulmonary congestion ZARATE/ Urinalysis. At this time no SI/HI, no indication for patient observation nor section 12, once medically cleared will be referred to care team. Differential Diagnosis Differential Diagnoses: The differential diagnosis associated with the presentation includes (Anxiety, muscular pain, ACS, unlikely PE as Wells negative and no risk factors, URI, less likely PNA, polysubstance use) Admission/Observation Consideration of admission/observation: Escalation of care including admission/observation considered (See narrative above in course narrative for further detail) Lab Data MDM Lab Attestation statement: I reviewed the patient's lab results. (See course narrative) 07/03/23 16:09 07/03/23 16:09 Labs: Lab Results 07/03/23 07/03/23 Range/Units 16:09 18:17 WBC 9.1 (4.8-10.8) X10*3/uL RBC 4.06 L (4.20-5.50) X10*6/uL Hgb 13.3 (12.0-16.0) g/dl Hct 37.3 (37.0-47.0) % MCV 91.9 (80.0-98.0) fL MCH 32.8 (27.0-33.0) pg MCHC 35.7 H (31.0-35.0) g/dl RDW 11.9 (11.0-16.0) % Plt Count 287 (160-400) X10*3/uL MPV 8.6 L (9.4-12.3) fL Immature Gran % (Auto) 0.2 (0.0-0.4) % Neut % (Auto) 65.3 (45-73) % Lymph % (Auto) 23.3 (20-40) % [place] % (Auto) 9.7 (2-11) % Eos % (Auto) 0.9 (0-4) % Baso % (Auto) 0.6 (0-2) % Lymph # (Auto) 2.1 (1.2-4.9) X10*3/uL [place] # (Auto) 0.9 (0.1-1.2) X10*3/uL Eos # (Auto) 0.1 (0.0-0.4) X10*3/uL Baso # (Auto) 0.1 (0.0-0.2) X10*3/uL Abs Immat Gran (auto) 0.02 (0.00-0.03) X10*3/uL Absolute Neuts (auto) 5.9 (2.0-8.3) x10*3/uL Absolute Nucleated RBC 0.000 (0.0-0.012) X10*3/uL Nucleated RBC % (auto) 0.0 (0.0-0.2) /100WBC PT 11.2 (11.1-13.3) SEC INR 0.9 (0.9-1.1) Sodium 136 (135-145) mmol/L Potassium 3.4 (3.3-5.1) mmol/L Chloride 102 (96-108) mmol/L Carbon Dioxide 19 L (22-29) mmol/L Anion Gap 18 (12-20) BUN 9 (9-16) mg/dL Creatinine 0.71 (0.5-1.4) mg/dL Estim Creat Clear Calc 86.6 Estimated GFR > 60 Random Glucose 95 (60-115) mg/dL Calcium 9.2 (8.4-10.2) mg/dL Total Bilirubin 1.0 (0.0-1.0) mg/dL AST 30 (5-31) U/L ALT 15 (0-31) U/L Alkaline Phosphatase 65 (39-117) U/L Troponin I High Sens < 2.7 (<3.5-17.0) ng/L Total Protein 6.7 (6.5-8.0) g/dL Albumin 4.2 (3.5-5.0) g/dL Beta HCG, Quant < 2 mIU/mL Salicylates < 5.0 L (15-30) mg/dL Urine Opiates Screen Not Detected (Not Detect) Urine Fentanyl Screen Not Detected (Not Detect) Acetaminophen < 3 (<30) mcg/mL Ur Barbiturates Screen Not Detected (Not Detect) Ur Phencyclidine Scrn Not Detected (Not Detect) Ur Amphetamines Screen Not Detected (Not Detect) U Benzodiazepines Scrn Not Detected (Not Detect) Urine Cocaine Screen POSITIVE H (Not Detect) U Marijuana (THC) Screen POSITIVE H (Not Detect) Ethyl Alcohol < 10 mg/dL COVID-19 (ALEENA) Negative (Negative) COVID-19 Clin Com See Note Influenza Type A (CYRUS) Negative (Negative) Influenza Type B (CYRUS) Negative (Negative) Influenza A & B Note See Note Independent Interpretation I performed an independent interpretation of an: EKG (See course narrative) and Plain X-Ray (I personally interpreted chest x-ray and agree with radiologist impression) Radiology Impression Discussion of test interpretation with radiology: I have reviewed the radiologist's reading. Independent Historian Clinical information obtained from an independent historian. History obtained from or confirmed by: EMS External Record Review External record reviewed: Outpatient record Discharge Plan Discharge Clinical Impression: Chest pain, Anxiety, Cocaine abuse Patient Disposition: Home, Self-Care Instructions: Chest Pain (ED), Cocaine Abuse (ED), Anxiety (ED) Additional Instructions: return for any worsening symptoms or concerns. follow up with therapist or detox if needed. can call [facility] from home if needed. Prescriptions: No Action hydroxyzine HCl 25 mg tablet 25 mg PO TID PRN (Reason: Itching)
[2023-07-03 16:00] VITALS: BP 152/93; PULSE 97; RESP 16; TEMP 36.7; O2SAT 98
[2023-07-03 16:13] LABS: MANUAL DIFF FLAG NO
[2023-07-03 16:18] LABS: Basophils Absolute Auto 0.1 X10*3/uL (0.0-0.2); Basophils Percent Auto 0.6 % (0-2); Eosinophils Absolute Auto 0.1 X10*3/uL (0.0-0.4); Eosinophils Percent Auto 0.9 % (0-4); Hematocrit 37.3 % (37.0-47.0); Hemoglobin 13.3 g/dl (12.0-16.0); Imm Gran Abs Auto 0.02 X10*3/uL (0.00-0.03); Imm Gran Pct Auto 0.2 % (0.0-0.4); Lymphocytes Absolute Auto 2.1 X10*3/uL (1.2-4.9); Lymphocytes Percent Auto 23.3 % (20-40); Mean Corpuscular HGB Conc 35.7 g/dl (31.0-35.0); Mean Corpuscular Hemoglobin 32.8 pg (27.0-33.0); Mean Corpuscular Volume 91.9 fL (80.0-98.0); Mean Platelet Volume 8.6 fL (9.4-12.3); Monocytes Absolute Auto 0.9 X10*3/uL (0.1-1.2); Monocytes Percent Auto 9.7 % (2-11); Neutrophils Absolute Auto 5.9 x10*3/uL (2.0-8.3); Neutrophils Percent Auto 65.3 % (45-73); Platelet Count 287 X10*3/uL (160-400); Red Blood Count 4.06 X10*6/uL (4.20-5.50); Red Cell Distribution Width 11.9 % (11.0-16.0); White Blood Count 9.1 X10*3/uL (4.8-10.8)
[2023-07-03 16:23] LABS: INTERNATIONAL NORM RATIO 0.9 (0.9-1.1); Prothrombin Time 11.2 SEC (11.1-13.3)
[2023-07-03 16:34] LABS: COVID-19 Test Negative (Negative); IDNOW Serial# 08D9AD1C
[2023-07-03 16:35] LABS: IDNOW Serial# 152EDE1D; Influenza A Negative (Negative); Influenza B2 Negative (Negative)
[2023-07-03 16:36] LABS: Ethanol < 10 mg/dL
[2023-07-03 16:41] LABS: Acetaminophen LAB < 3 mcg/mL (<30); Salicylate < 5.0 mg/dL (15-30)
[2023-07-03 16:44] LABS: Alanine Aminotransferase 15 U/L (0-31); Albumin Level 4.2 g/dL (3.5-5.0); Alkaline Phosphatase 65 U/L (39-117); Anion Gap 18 (12-20); Aspartate Amino Transferase 30 U/L (5-31); Blood Urea Nitrogen 9 mg/dL (9-16); Calcium 9.2 mg/dL (8.4-10.2); Carbon Dioxide 19 mmol/L (22-29); Chloride 102 mmol/L (96-108); Creatinine Clr Calc Pharmacy 86.6; Estimated Glomerular Filt Rate > 60; Glucose Random 95 mg/dL (60-115); Potassium 3.4 mmol/L (3.3-5.1); Sodium 136 mmol/L (135-145); Total Protein 6.7 g/dL (6.5-8.0)
[2023-07-03 16:46] LABS: HCG Quantitative < 2 mIU/mL; Troponin-I High Sensitivity < 2.7 ng/L (<3.5-17.0)
[2023-07-03] MEDS: LORazepam 1 MG TABLET PO (18:20)
[2023-07-03 18:36] LABS: Amphetamine Screen Urine Not Detected (Not Detect); Barbiturates, Urine Not Detected (Not Detect); Benzodiazepines Screen Urine Not Detected (Not Detect); Cannabinoid Screen Urine POSITIVE (Not Detect); Cocaine Screen Urine POSITIVE (Not Detect); Fentanyl, urine Not Detected (Not Detect); Opiate Screen Urine Not Detected (Not Detect); Phencyclidine Screen Urine Not Detected (Not Detect)
[2023-07-03] MEDS: Acetaminophen 325 MG TABLET 975 MG PO (18:40)
[2023-07-03 18:44] VITALS: BP 150/100; PULSE 89; RESP 16; TEMP 36.2; O2SAT 95
--- NOTE | 2023-07-04 03:27 | PC.NURSE ---
Pt upset, on the phone yelling I was suppose to talk to someone hours ago requesting to leave, Provider made aware. D/C papers given, Pt brought over to [facility]con for belongings.
== END 2023-07-04 03:29 | disposition home or self-care (01) ==
PROVIDERS: Nurse Practitioner Family; Emergency Provider Student in an Organized Health Care Education/Training Program
DX: R07.89 Other chest pain (principal); F33.1 Major depressive disorder, recurrent, moderate; F14.10 Cocaine abuse, uncomplicated; F41.1 Generalized anxiety disorder; F43.0 Acute stress reaction; Z79.899 Other long term (current) drug therapy; Z11.52 Encounter for screening for COVID-19
CPT/HCPCS: 36415; 71046; 80053; 80143; 80179; 80307; 84484; 84702; 85025; 85610; 87502; 87635; 93005; 99283; 99285

== ENCOUNTER → 2023-07-03 15:03 | Outpatient (BNV) | payer MEDICAID, SELFPAY | PROVIDERS: Emergency Provider Student in an Organized Health Care Education/Training Program; Visit Provider Internal Medicine | DX: R07.9 Chest pain, unspecified (principal) | CPT/HCPCS: 93010 ==

== ENCOUNTER 2023-07-27 10:42 | Outpatient (REF) | payer MEDICAID, SELFPAY ==
[2023-07-29 21:28] LABS: C. trachomatis RNA TMA NOT DETECTED (NOT DETECTED); N. gonorrhoeae RNA TMA NOT DETECTED (NOT DETECTED)
== END 2023-07-27 10:43 | disposition home or self-care (01) ==
LOC: HO.HHCLNP 10:42
PROVIDERS: Visit Provider Advanced Practice Midwife
DX: Z11.3 Encounter for screening for infections with a predominantly sexual mode of transmission (principal)
CPT/HCPCS: 36415; 87491; 87591